=== PATIENT | male | born 1935 | race Caucasian/White ===

== ENCOUNTER 2019-06-27 15:37 | Observation (INO) ==
--- NOTE | 2019-06-27 16:15 | Emergency Department Note ---
Disposition Clinical Impression: Diarrhea Qualifiers: Diarrhea type: unspecified type Qualified Code(s): R19.7 - Diarrhea, unspecified Disposition: Admitted As Inpatient Condition: Fair Instructions: Abdominal Pain (ED) Referrals: Luis Langford DO [Primary Care Provider] - Forms: ED Satisfaction Letter, Work/School Release Time of Disposition: 17:31 Abdominal Pain HPI - General Chief Complaint: ED Abdominal Pain Stated Complaint: Fall/Back Pain/Abd Pain Source: patient, family Mode of arrival: ambulatory Limitations: no limitations Nursing Notes Reviewed: Yes Vital Signs Reviewed: Yes - History of Present Illness HPI Narrative: Mr. Teresa is an 84-year-old male past medical history of having multiple strokes, quadruple bypass, and recent aortic valve replacement on May 31 presented to the ED for diarrhea and abdominal pain after an unwitnessed fall 1 week ago. 1 Week ago, patient had a fall that he states that he tripped over something but does not remember what he hit and how he landed and if he had LOC. His son states that since then he has been drifting to the right when he walks and has been slowing down his walking. About 1 week ago when this happened he has also has right lower quadrant pain and diarrhea at least 10 times per day. Denies blood in his stool. Over the last 3 days, he has noticed increase bilateral lower extremity edema and dizziness but denies SOB or chest pain. Low back pain has been worst since the fall. Back pain in on the right side worsens when he lifts his right leg. Denies dysuria, urinary frequency, nausea, vomiting, fever. Pain Scale: 7 - Related Data Home Medications Medication Instructions Recorded Confirmed Adult Aspirin 325 mg PO DAILY 06/27/19 06/27/19 Ferrous Sulfate [Iron] 325 mg PO TID 06/27/19 06/27/19 Pravastatin Sodium [Pravachol] 40 mg PO DAILY 06/27/19 06/27/19 Allergies Allergy/AdvReac Type Severity Reaction Status Date / Time atorvastatin [From Lipitor] Allergy Muscle Pain Verified 06/27/19 19:57 "anti anxiety medicine" Allergy See Uncoded 09/09/17 13:38 Comments All systems ED: reviewed and negative except as stated. Review of Systems: As Per HPI Abdominal Pain PMH - Past Medical History Medical history: Reports: coronary artery disease, CVA Reports: diverticulosis Psychiatric history: Reports: no psych history - Social History Smoking status: Never smoker Alcohol use: Reports: none Drug use: Reports: none Physical Exam Constitutional: A&O x 3, Alert, in no acute distress, well nourished HEENT: PERRL, Normocephalic, atraumatic, normal contour and symmetric, no masses, lesions or scars Heart: Normal, regular rate and rhythm, no murmurs Lungs: Clear to auscultation, no wheezes, rales, or rhonchi Abdomen: right lower quadrant tenderness, Soft, nondistended,, and no masses palpable, bowel sounds present increased, no guarding or rigidity. 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 Skin: Skin warm and dry, no lesions, no rashes, no jaundice Rectal no blood present, no hemmroids, normal sphincter tone Neurologic: negative rhomberg, normal finger to nose testing, Cranial nerves II through XII intact, no focal deficits, strength within normal limits in all extremities Psych: Cooperative with exam, cognitive function mild judgment good insight good, speech clear, thought process logical, and goal directed Course Course Narrative: Due to patient being a poor historian and a history of a fall that he does not remember if he had LOC with associated diplopia and per son drifting to the right when he walk, will obtain a CT of head without contrast. Due to diarrhea and abdominal pain will obtain CT of abdomen. Will also obtain electrolytes, lipase, hepatic panel, BNP, CBC, and UA to assess for other abnormalities that could be causing the diarrhea or electrolyte abnormalities caused by the shaina rrhea. - Reevaluation(s) Reevaluation #1: Hypokalemia with a potassium of 3.0. Hemoglobin 10.6, previous on 06/21/19 11.6. Rectal exam performed which did not show hemorroids or gross blood. Hemoccult test sent. CT abd, pelvis, and head pending. Time: 17:27 Reevaluation #2: Patient was signed out to Dr. Anna Marie Ruiz to complete management of care. Vital Signs Temperature 99.1 F 06/27/19 15:43 Pulse Rate 100 06/27/19 15:43 Respiratory Rate 18 06/27/19 15:43 Blood Pressure 101/65 06/27/19 15:43 O2 Sat by Pulse Oximetry 94 06/27/19 15:43 Temperature 99.1 F 06/27/19 15:53 Pulse Rate 77 06/27/19 20:38 Respiratory Rate 16 06/27/19 19:58 Blood Pressure 120/86 06/27/19 20:38 O2 Sat by Pulse Oximetry 96 06/27/19 19:58 Oxygen Delivery Oxygen Delivery Room Air Abdominal Pain - MDM Narrative Medical decision making narrative: Patient had inflammation of his colon on CT. He was started on antibiotics emergency department. He will be admitted to the hospitalist for further care and evaluation of his weakness and diarrhea likely secondary to colitis. - Medical Records Medical records reviewed: Yes I reviewed the patient's medical records. - Lab Data Lab results reviewed: Yes I reviewed the patient's lab results. Result diagrams: 06/27/19 16:28 06/27/19 16:28 Lab Results 06/27/19 06/27/19 06/27/19 Range/Units 16:27 16:28 16:28 WBC 10.3 D (4.3-11.1) K/mcL RBC 3.40 L (4.19-5.50) M/mcL Hgb 10.6 L (12.9-16.9) g/dL Hct 31.8 L (37.5-50.1) % MCV 93.5 (83.0-100.0) fL MCH 31.2 (28.0-33.3) pg MCHC 33.3 (31.6-35.5) g/dL RDW 13.1 (11.5-14.5) % Plt Count 194 (140-400) K/mcL MPV 9.9 (9.4-12.4) fL Immature Gran % 0.7 (0-4) % Seg Neutrophils % 76.6 % Lymphocytes % 9.6 % Monocytes % 12.6 % Eosinophils % 0.3 % Basophils % 0.2 % Neutrophils # 7.9 (1.6-8.9) K/mcL Lymphocytes # 1.0 (0.6-4.6) K/mcL Monocytes # 1.3 (0.0-1.3) K/mcL Eosinophils # 0.0 (0.0-0.6) K/mcL Basophils # 0.0 (0.0-0.2) K/mcL Sodium 134 L (136-145) mEq/L Potassium 3.0 L (3.5-5.1) mEq/L Chloride 98 (98-107) mEq/L Carbon Dioxide 29 (23-29) mEq/L BUN 16 (8-23) mg/dL Creatinine 1.19 (0.70-1.30) mg/dL Est GFR ( Amer) > 60 (> 60) Est GFR (Non-Af Amer) 58 L (> 60) BUN/Creatinine Ratio 13 (6-26) Glucose 138 H (70-105) mg/dL Calculated Osmolality 281 (280-300) Lactic Acid 1.6 (0.5-2.2) mmol/L Calcium 8.4 L (8.6-10.3) mg/dL Total Bilirubin 0.7 (0.3-1.0) mg/dL Direct Bilirubin 0.1 (0.0-0.2) mg/dL Indirect Bilirubin 0.6 (0.0-1.2) mg/dL AST 17 (13-39) Units/L ALT 13 (7-52) Units/L Alkaline Phosphatase 66 (34-104) Units/L B-Natriuretic Peptide (Less than 100) pg/mL Serum Total Protein 6.4 (6.4-8.9) g/dL Albumin 3.4 L (3.5-5.7) g/dL Globulin 3.0 (2.4-3.5) g/dL Albumin/Globulin Ratio 1.1 (1.1-2.2) Lipase 20 (11-82) Units/L Urine Color (Yellow) Urine Clarity (Clear) Urine pH (5.0-8.0) pH Units Ur Specific [place] (1.010-1.025) Urine Protein (Neg-Trace) mg/dL Urine Glucose (UA) (Normal) mg/dL Urine Ketones (Negative) mg/dL Urine Blood (Negative) Urine Nitrite (Negative) Urine Bilirubin (Negative) Urine Urobilinogen (Normal) mg/dL Ur Leukocyte Esterase (Negative) Urine Microscopic RBC (0-3) per hpf Urine Microscopic WBC (0-3) per hpf Ur Squamous Epith Cells (None-Few) per lpf Urine Bacteria (None-Few) per hpf Hyaline Casts (None-Few) per lpf Ur Culture Indicated? (NO) Stool Occult Bld Scrn (Negative) 06/27/19 06/27/19 06/27/19 Range/Units 16:28 17:00 19:13 WBC (4.3-11.1) K/mcL RBC (4.19-5.50) M/mcL Hgb (12.9-16.9) g/dL Hct (37.5-50.1) % MCV (83.0-100.0) fL MCH (28.0-33.3) pg MCHC (31.6-35.5) g/dL RDW (11.5-14.5) % Plt Count (140-400) K/mcL MPV (9.4-12.4) fL Immature Gran % (0-4) % Seg Neutrophils % % Lymphocytes % % Monocytes % % Eosinophils % % Basophils % % Neutrophils # (1.6-8.9) K/mcL Lymphocytes # (0.6-4.6) K/mcL Monocytes # (0.0-1.3) K/mcL Eosinophils # (0.0-0.6) K/mcL Basophils # (0.0-0.2) K/mcL Sodium (136-145) mEq/L Potassium (3.5-5.1) mEq/L Chloride (98-107) mEq/L Carbon Dioxide (23-29) mEq/L BUN (8-23) mg/dL Creatinine (0.70-1.30) mg/dL Est GFR ( Amer) (> 60) Est GFR (Non-Af Amer) (> 60) BUN/Creatinine Ratio (6-26) Glucose (70-105) mg/dL Calculated Osmolality (280-300) Lactic Acid (0.5-2.2) mmol/L Calcium (8.6-10.3) mg/dL Total Bilirubin (0.3-1.0) mg/dL Direct Bilirubin (0.0-0.2) mg/dL Indirect Bilirubin (0.0-1.2) mg/dL AST (13-39) Units/L ALT (7-52) Units/L Alkaline Phosphatase (34-104) Units/L B-Natriuretic Peptide 157 H (Less than 100) pg/mL Serum Total Protein (6.4-8.9) g/dL Albumin (3.5-5.7) g/dL Globulin (2.4-3.5) g/dL Albumin/Globulin Ratio (1.1-2.2) Lipase (11-82) Units/L Urine Color Yellow (Yellow) Urine Clarity Clear (Clear) Urine pH 6.0 (5.0-8.0) pH Units Ur Specific [place] 1.024 (1.010-1.025) Urine Protein 30 H (Neg-Trace) mg/dL Urine Glucose (UA) Normal (Normal) mg/dL Urine Ketones Negative (Negative) mg/dL Urine Blood Negative (Negative) Urine Nitrite Negative (Negative) Urine Bilirubin Small H (Negative) Urine Urobilinogen Normal (Normal) mg/dL Ur Leukocyte Esterase Negative (Negative) Urine Microscopic RBC 0-3 (0-3) per hpf Urine Microscopic WBC 5-15 H (0-3) per hpf Ur Squamous Epith Cells Many H (None-Few) per lpf Urine Bacteria None Seen (None-Few) per hpf Hyaline Casts None Seen (None-Few) per lpf Ur Culture Indicated? YES A (NO) Stool Occult Bld Scrn Negative (Negative) - Radiology Data Radiology results reviewed: Yes I reviewed the patient's radiology results. - EKG Data EKG attestation: Yes I reviewed and interpreted this EKG. EKG shows normal: sinus rhythm Rate: normal Rhythm: NSR [place]/QRS: normal When compared to previous EKG there are: no significant changes Interpretation: no acute changes Attestation Statement - Attestation Attestation: I, Alex Martinez, examined this patient and my medical decision-making was reviewed with the SUPERINTENDENT PIER/PA/Advanced Practice Nurse/Resident Physician. I agree with the documented findings, disposition and treatment plan as described except to the extent set forth below. 84-year-old male presents emergency Department with concerns of a fall one week ago, increasing generalized weakness and multiple episodes of liquid stool a day over the past week. Family states that his condition has progressively declined over the past week. He was not evaluated after fall one week ago. Patient reports he lost his balance however he is a poor historian. Patient denies hematochezia. He has had dark stools however he is also been taking iron tablets. No history of similar symptoms in the past. CT of the abdomen and pelvis shows likely colitis versus proctitis. Patient was started on antibiotics emergency department and will be admitted to the hospitalist for further care and evaluation.
[2019-06-27 16:43] LABS: Basophils % 0.2 %; Eosinophils % 0.3 %; Hematocrit 31.8 % (37.5-50.1); Hemoglobin 10.6 g/dL (12.9-16.9); Immature Granulocytes % 0.7 % (0-4); Lymphocytes % 9.6 %; Mean Corpuscular HGB Conc 33.3 g/dL (31.6-35.5); Mean Corpuscular Hemoglobin 31.2 pg (28.0-33.3); Mean Corpuscular Volume 93.5 fL (83.0-100.0); Mean Platelet Volume 9.9 fL (9.4-12.4); Monocytes # 1.3 K/mcL (0.0-1.3); Monocytes % 12.6 %; Neutrophils # 7.9 K/mcL (1.6-8.9); Platelet Count 194 K/mcL (140-400); Red Cell Distribution Width 13.1 % (11.5-14.5); Segmented Neutrophils % 76.6 %
[2019-06-27 16:45] LABS: White Blood Count 10.3 K/mcL (4.3-11.1)
[2019-06-27 17:01] LABS: Alanine Aminotransferase 13 Units/L (7-52); Albumin 3.4 g/dL (3.5-5.7); Albumin/Globulin Ratio 1.1 (1.1-2.2); Alkaline Phosphatase 66 Units/L (34-104); Aspartate Amino Transferase 17 Units/L (13-39); BUN/Creatinine Ratio 13 (6-26); Bilirubin,Direct 0.1 mg/dL (0.0-0.2); Bilirubin,Indirect 0.6 mg/dL (0.0-1.2); Bilirubin,Total 0.7 mg/dL (0.3-1.0); Blood Urea Nitrogen 16 mg/dL (8-23); Calcium 8.4 mg/dL (8.6-10.3); Carbon Dioxide 29 mEq/L (23-29); Chloride 98 mEq/L (98-107); Glucose 138 mg/dL (70-105); Lipase 20 Units/L (11-82); Osmolality,Calculated 281 (280-300); Sodium 134 mEq/L (136-145); Total Protein 6.4 g/dL (6.4-8.9); eGFR For African Americans > 60 (> 60); eGFR For Non-African Americans 58 (> 60)
[2019-06-27 19:25] LABS: Bilirubin,Urine Small (Negative); Blood,Urine Negative (Negative); Clarity,Urine Clear (Clear); Color,Urine Yellow (Yellow); Glucose,Urine (UA) Normal (Normal); Ketones,Urine Negative (Negative); Leukocyte Esterase,Urine Negative (Negative); Nitrite,Urine Negative (Negative); Protein,Urine 30 mg/dL (Neg-Trace); Specific Gravity,Urine 1.024 (1.010-1.025); Urobilinogen,Urine Normal (Normal)
[2019-06-27 19:27] LABS: Bacteria,Urine None Seen per hpf (None-Few); Hyaline Casts,Urine None Seen per lpf (None-Few); RBC,Urine 0-3 per hpf (0-3); Squamous Epithelial Cell,Urine Many per lpf (None-Few)
[2019-06-27] MEDS ORDERED: 0.9 % Sodium Chloride 1,000 ML IVC ONE (19:27)
[2019-06-27] MEDS ORDERED: MetroNIDAZOLE 500 MG/100 ML 500 MG/100 ML BAG IVPB ONE (19:28)
[2019-06-27] MEDS ORDERED: Naloxone 0.4 MG/ML INJ IVP PRN (23:38)
[2019-06-27] MEDS ORDERED: Ondansetron 4 MG/2 ML VIAL IVP PRN (23:38)
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
[2019-06-28 04:49] LABS: Basophils % 0.3 %; Eosinophils # 0.1 K/mcL (0.0-0.6); Eosinophils % 0.8 %; Hematocrit 31.8 % (37.5-50.1); Hemoglobin 10.5 g/dL (12.9-16.9); Immature Granulocytes % 0.7 % (0-4); Lymphocytes # 0.8 K/mcL (0.6-4.6); Lymphocytes % 8.1 %; Mean Corpuscular Hemoglobin 30.7 pg (28.0-33.3); Mean Platelet Volume 9.9 fL (9.4-12.4); Monocytes # 1.2 K/mcL (0.0-1.3); Monocytes % 12.7 %; Neutrophils # 7.4 K/mcL (1.6-8.9); Platelet Count 180 K/mcL (140-400); Red Blood Count 3.42 M/mcL (4.19-5.50); Segmented Neutrophils % 77.4 %; White Blood Count 9.6 K/mcL (4.3-11.1)
[2019-06-28 04:54] LABS: INR 1.4; Prothrombin Time 16.3 Seconds (9.4-12.1)
[2019-06-28 04:57] LABS: Activated Partial Thrombo Time 31.1 Seconds (26.0-36.0)
[2019-06-28 05:10] LABS: Alanine Aminotransferase 11 Units/L (7-52); Albumin/Globulin Ratio 1.2 (1.1-2.2); Alkaline Phosphatase 56 Units/L (34-104); Aspartate Amino Transferase 15 Units/L (13-39); BUN/Creatinine Ratio 11 (6-26); Bilirubin,Total 0.7 mg/dL (0.3-1.0); Blood Urea Nitrogen 12 mg/dL (8-23); Carbon Dioxide 26 mEq/L (23-29); Chloride 103 mEq/L (98-107); Chol/HDL Ratio 2.8 (0-4.9); Cholesterol 115 mg/dL (< 200); Globulin 2.5 g/dL (2.4-3.5); Glucose 108 mg/dL (70-105); HDL Cholesterol 41 mg/dL (40-59); LDL Cholesterol,Calculated 64 mg/dL (0-99); Magnesium 1.7 mg/dL (1.6-2.6); Osmolality,Calculated 284 (280-300); Phosphorous 2.4 mg/dL (2.7-4.5); Potassium 3.3 mEq/L (3.5-5.1); Sodium 137 mEq/L (136-145); Total Protein 5.5 g/dL (6.4-8.9); Triglycerides 49 mg/dL (< 150); eGFR For African Americans > 60 (> 60); eGFR For Non-African Americans > 60 (> 60)
[2019-06-28] MEDS: 0.9 % Sodium Chloride 1,000 ML IVC SCH ×2 (06:10→20:14)
[2019-06-28] MEDS: MetroNIDAZOLE 500 MG/100 ML 500 MG/100 ML BAG IVPB SCH ×3 (06:11→20:13)
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
--- NOTE | 2019-06-28 09:54 | Internal Med Progress Note ---
<Jose Miguel Dixon F - Last Filed: 06/28/19 14:07> Hospitalist Progress Note - Encounter Date of Encounter: 06/28/19 Time of Encounter: 09:53 - Subjective Interval History: Patient was seen and examined at bedside. No acute events overnight. Patient is complaining of nonspecific abdominal pain, however it was difficult to elicit a history. He has a history of dementia, unsure of what mental baseline is. Today he is alert and oriented to self only. He otherwise denies any chest pain, shortness of breath, palpitations, nausea, vomiting, fevers, chills. - Exam Vitals: Temp Pulse Resp BP Pulse Ox 98.5 F 95 16 122/66 93 06/28/19 07:10 06/28/19 07:10 06/28/19 07:10 06/28/19 07:10 06/28/19 07:10 Exam: GEN: Well-appearing, NAD, conversant. HEAD: Normocephalic, atraumatic. EYES: PERRL, EOMI, anicteric. ENT: MMM. oropharynx without erythema or drainage. NECK: Supple. No LAD. No stiffness or restricted ROM. No tracheal deviation. HEART: Regular rate and regular rhythm, normal S1/S2, no m/r/g. LUNGS: CTAB, good air exchange bilaterally. No wheezing, rubs, or rhonchi. ABDO: Soft, mild diffuse tenderness, nondistended with active bowel sounds. No rebound/guarding/rigidity. : No suprapubic tenderness or CVA tenderness. BACK: No obvious stepoffs or deformities. EXT: Without cyanosis, clubbing or edema. SKIN: Warm and dry without any rash. NEURO: Grossly nonfocal. Alert and oriented to self only, moving all 4 extremities. CN not formally tested but appear grossly intact. PSYCH: Normal affect, no depressed or anxious mood. - Assessment and Plan (1) Colitis Current Visit: Yes Status: Acute Assessment and Plan: Patient presented with abdominal pain with diarrhea. CTAP on 06/27 showed rectosigmoid wall thickening with serosal haziness consistent with colitis/rectal proctitis. In the ED, treated empirically with Cipro/Flagyl. - Cont abx treatment - NPO for now, advance diet as tolerated (2) Hyperlipidemia Current Visit: Yes Status: Acute Assessment and Plan: Patient has a chronic history of hyperlipidemia. Fasting lipid panel was checked which showed elevated cholesterol of 206. We will consider restarting the patient's pravastatin. (3) Mechanical heart valve present Current Visit: Yes Status: Acute Assessment and Plan: History of aortic valve replacement. On aspirin 325 for anticoagulation. Patient has an INR of 1.4. Holding further anticoagulation out of risk of bleeding. (4) Hypokalemia Current Visit: Yes Status: Acute Assessment and Plan: Potassium was 3 on admission and 3.3 this morning. - Repleted orally this morning - Will monitor with BMPs (5) Fall Current Visit: Yes Status: Acute Assessment and Plan: Patient endorsed a unwitnessed fall upon arrival to the emergency department. CT head shows acute intracranial abnormality only cerebral atrophy and remote lacunar infarct. No acute abnormalities or fractures on chest or pelvic x-ray - On falls precautions - On ASA 325, no other AC DVT Prophylaxis: DVT ppx: SCDs Activity: As tolerated Fluids: Normal saline at 125 ML/HR Electrolytes: Replete as necessary Nutrition: Cardiac diet GI ppx: None Lines: 1x PIV Consults: None Code: Full code Dispo: Pending further antibiotic treatment - Time Spent with Patient Total time spent is greater than 50% in coordination of care (as documented) at patient's floor/unit and/or counseling patient: less than 15 minutes Plan of Care Discussed with: patient Internal Medicine: Result - Labs CBC & Chem 7: 06/28/19 04:02 06/28/19 04:02 Labs: Short CBC 06/27/19 06/28/19 Range/Units 16:28 04:02 WBC 10.3 D 9.6 (4.3-11.1) K/mcL Hgb 10.6 L 10.5 L (12.9-16.9) g/dL Hct 31.8 L 31.8 L (37.5-50.1) % Plt Count 194 180 (140-400) K/mcL Neutrophils # 7.9 7.4 (1.6-8.9) K/mcL BMP 06/27/19 06/28/19 16:28 04:02 Sodium 134 L 137 Potassium 3.0 L 3.3 L Chloride 98 103 Carbon Dioxide 29 26 BUN 16 12 Creatinine 1.19 1.08 Glucose 138 H 108 H Calcium 8.4 L 8.0 L Liver Function 06/27/19 06/28/19 Range/Units 16:28 04:02 Total Bilirubin 0.7 0.7 (0.3-1.0) mg/dL Direct Bilirubin 0.1 (0.0-0.2) mg/dL AST 17 15 (13-39) Units/L ALT 13 11 (7-52) Units/L Alkaline Phosphatase 66 56 (34-104) Units/L Albumin 3.4 L 3.0 L (3.5-5.7) g/dL Urine 06/27/19 Range/Units 19:13 Urine Color Yellow (Yellow) Urine Clarity Clear (Clear) Urine pH 6.0 (5.0-8.0) pH Units Ur Specific [place] 1.024 (1.010-1.025) Urine Protein 30 H (Neg-Trace) mg/dL Urine Glucose (UA) Normal (Normal) mg/dL - ABG Interpretation ABG results: PT/INR, D-dimer PT 16.3 Seconds (9.4-12.1) H 06/28/19 04:02 - Impressions Impressions Abdomen/Pelvis CT 06/27/19 16:10 IMPRESSION: 1. Rectosigmoid wall thickening with serosal haziness consistent with colitis/rectoproctitis. 2. Status post low left colonic resection without evidence of obstruction or significant asymmetry at the surgical site. 3. Scattered mild prominence of small bowel loops and colon favoring ileus. 4. No appendicitis, gallstones, or urinary obstruction. 5. Atherosclerotic disease and other findings as above. D/ / 06/27/2019 19:33:24 Omaira Beck MD / Dipika Gómez Interpreting Provider: Omaira Beck MD Head CT 06/27/19 16:12 IMPRESSION: No acute intracranial abnormality. Cerebral atrophy. Chronic small vessel ischemic change. 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 D/ / 06/27/2019 19:14:41 Donna Turner MD / Dipika Gómez Interpreting Provider: Donna Turner MD Chest X-Ray 06/27/19 16:48 IMPRESSION: Chest radiograph: No acute abnormality detected. Pelvis radiograph: No acute abnormality identified. D/ / Ilya Smith MD / Ilya Smith MD Interpreting Provider: Ilya Smith MD Pelvis X-Ray 06/27/19 16:48 IMPRESSION: Chest radiograph: No acute abnormality detected. Pelvis radiograph: No acute abnormality identified. D/ / Ilya Smith MD / Ilya Smith MD Interpreting Provider: Ilya Smith MD Consult Discharge Plan - Plan Referrals: Luis Langford DO [Primary Care Provider] - <Jonnie Borges - Last Filed: 06/28/19 14:48> Hospitalist Progress Note - Encounter Date of Encounter: 06/28/19 - Exam Vitals: Temp Pulse Resp BP Pulse Ox 98.5 F 71 16 115/63 95 06/28/19 11:22 06/28/19 11:22 06/28/19 11:22 06/28/19 11:22 06/28/19 11:22 - Assessment and Plan (1) Colitis Current Visit: Yes Status: Acute (2) Hyperlipidemia Current Visit: Yes Status: Acute (3) Mechanical heart valve present Current Visit: Yes Status: Acute (4) Hypokalemia Current Visit: Yes Status: Acute - Time Spent with Patient Total time spent is greater than 50% in coordination of care (as documented) at patient's floor/unit and/or counseling patient: Internal Medicine: Result - Labs CBC & Chem 7: 06/28/19 04:02 06/28/19 04:02 Labs: Short CBC 06/27/19 06/28/19 Range/Units 16:28 04:02 WBC 10.3 D 9.6 (4.3-11.1) K/mcL Hgb 10.6 L 10.5 L (12.9-16.9) g/dL Hct 31.8 L 31.8 L (37.5-50.1) % Plt Count 194 180 (140-400) K/mcL Neutrophils # 7.9 7.4 (1.6-8.9) K/mcL BMP 06/27/19 06/28/19 16:28 04:02 Sodium 134 L 137 Potassium 3.0 L 3.3 L Chloride 98 103 Carbon Dioxide 29 26 BUN 16 12 Creatinine 1.19 1.08 Glucose 138 H 108 H Calcium 8.4 L 8.0 L Liver Function 06/27/19 06/28/19 Range/Units 16:28 04:02 Total Bilirubin 0.7 0.7 (0.3-1.0) mg/dL Direct Bilirubin 0.1 (0.0-0.2) mg/dL AST 17 15 (13-39) Units/L ALT 13 11 (7-52) Units/L Alkaline Phosphatase 66 56 (34-104) Units/L Albumin 3.4 L 3.0 L (3.5-5.7) g/dL Urine 06/27/19 Range/Units 19:13 Urine Color Yellow (Yellow) Urine Clarity Clear (Clear) Urine pH 6.0 (5.0-8.0) pH Units Ur Specific [place] 1.024 (1.010-1.025) Urine Protein 30 H (Neg-Trace) mg/dL Urine Glucose (UA) Normal (Normal) mg/dL - ABG Interpretation ABG results: PT/INR, D-dimer PT 16.3 Seconds (9.4-12.1) H 06/28/19 04:02 - Impressions Impressions Abdomen/Pelvis CT 06/27/19 16:10 IMPRESSION: 1. Rectosigmoid wall thickening with serosal haziness consistent with colitis/rectoproctitis. 2. Status post low left colonic resection without evidence of obstruction or significant asymmetry at the surgical site. 3. Scattered mild prominence of small bowel loops and colon favoring ileus. 4. No appendicitis, gallstones, or urinary obstruction. 5. Atherosclerotic disease and other findings as above. D/ / 06/27/2019 19:33:24 Omaira Beck MD / Dipika Gómez Interpreting Provider: Omaira Beck MD Head CT 06/27/19 16:12 IMPRESSION: No acute intracranial abnormality. Cerebral atrophy. Chronic small vessel ischemic change. 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 D/ / 06/27/2019 19:14:41 Donna Turner MD / Dipika Gómez Interpreting Provider: Donna Turner MD Chest X-Ray 06/27/19 16:48 IMPRESSION: Chest radiograph: No acute abnormality detected. Pelvis radiograph: No acute abnormality identified. D/ / Ilya Smith MD / Ilya Smith MD Interpreting Provider: Ilya Smith MD Pelvis X-Ray 06/27/19 16:48 IMPRESSION: Chest radiograph: No acute abnormality detected. Pelvis radiograph: No acute abnormality identified. D/ / Ilya Smith MD / Ilya Smith MD Interpreting Provider: Ilya Smith MD - Attending Attestation I examined this patient and my medical decision-making was reviewed with the Resident Physician. I agree with the documented findings, disposition and treatment plan as described except to the extent set forth below. 84 year old male with history of CAD, CVA, CABG, AVR one month ago presented with colitis/proctisi and fall. He was started on Cipro/Flagyl. Currently states pain is present but not as bad. Daughter at bedside, states patient behavior is not typical since he had multiple strokes. Patient is observed to be slightly confused but will answer questions when asked. He denies fevers. Abdomen is soft, bowel sounds normal. CT reviewed, VS: reviewed, Labs: reviewed. INR 1.4 but patient is not on any anticoagulation. Clinical records reviewed, he is not on anticoagulation because he is high fall risk, so is on aspirin. Continue Cipro/Flagyl and advance diet as tolerated. Will likely benefit from PT/OT evaluation when pain improves. <ZackJose Miguel F - Last Filed: 06/28/19 14:07> (2) Hyperlipidemia Qualifiers: Qualified Code(s): E78.5 - Hyperlipidemia, unspecified <Jonnie Borges - Last Filed: 06/28/19 14:48> (2) Hyperlipidemia Qualifiers: Qualified Code(s): E78.5 - Hyperlipidemia, unspecified
[2019-06-28] MEDS: Acetaminophen 325 MG TABLET PO PRN (10:41)
[2019-06-28] MEDS ORDERED: Calcium Gluconate 2,000 MG in 0.9 % Sodium Chloride 100 ML IVPB ONE (15:36)
[2019-06-29] MEDS ORDERED: *HR* Promethazine 25 MG/ML VIAL IVP PRN (00:39)
[2019-06-29] MEDS ORDERED: Haloperidol Lactate 5 MG/ML VIAL IVP ONE (00:39)
[2019-06-29] MEDS: MetroNIDAZOLE 500 MG/100 ML 500 MG/100 ML BAG IVPB SCH ×2 (04:15→12:05)
[2019-06-29 05:12] LABS: Basophils % 0.2 %; Eosinophils # 0.2 K/mcL (0.0-0.6); Eosinophils % 1.4 %; Hematocrit 32.3 % (37.5-50.1); Hemoglobin 10.6 g/dL (12.9-16.9); Immature Granulocytes % 0.6 % (0-4); Lymphocytes % 7.9 %; Mean Corpuscular HGB Conc 32.8 g/dL (31.6-35.5); Mean Corpuscular Hemoglobin 31.4 pg (28.0-33.3); Mean Corpuscular Volume 95.6 fL (83.0-100.0); Mean Platelet Volume 9.6 fL (9.4-12.4); Monocytes # 1.1 K/mcL (0.0-1.3); Monocytes % 8.8 %; Neutrophils # 9.8 K/mcL (1.6-8.9); Platelet Count 171 K/mcL (140-400); Red Blood Count 3.38 M/mcL (4.19-5.50); Red Cell Distribution Width 12.9 % (11.5-14.5); Segmented Neutrophils % 81.1 %; White Blood Count 12.1 K/mcL (4.3-11.1)
[2019-06-29 05:19] LABS: INR 1.7; Prothrombin Time 19.1 Seconds (9.4-12.1)
[2019-06-29 05:26] LABS: Alanine Aminotransferase 14 Units/L (7-52); Albumin 2.9 g/dL (3.5-5.7); Albumin/Globulin Ratio 1.1 (1.1-2.2); Alkaline Phosphatase 57 Units/L (34-104); Aspartate Amino Transferase 19 Units/L (13-39); BUN/Creatinine Ratio 10 (6-26); Bilirubin,Total 0.6 mg/dL (0.3-1.0); Blood Urea Nitrogen 10 mg/dL (8-23); Calcium 7.7 mg/dL (8.6-10.3); Carbon Dioxide 23 mEq/L (23-29); Chloride 108 mEq/L (98-107); Globulin 2.7 g/dL (2.4-3.5); Glucose 106 mg/dL (70-105); Osmolality,Calculated 287 (280-300); Phosphorous 2.2 mg/dL (2.7-4.5); Potassium 3.4 mEq/L (3.5-5.1); Sodium 139 mEq/L (136-145); Total Protein 5.6 g/dL (6.4-8.9); eGFR For African Americans > 60 (> 60); eGFR For Non-African Americans > 60 (> 60)
[2019-06-29] MEDS: 0.9 % Sodium Chloride 1,000 ML IVC SCH ×3 (05:51→20:58)
--- NOTE | 2019-06-29 07:24 | Internal Med Progress Note ---
<Jose Miguel Dixon F - Last Filed: 06/29/19 13:12> Hospitalist Progress Note - Encounter Date of Encounter: 06/29/19 Time of Encounter: 07:23 - Subjective Interval History: Patient was seen and examined at bedside. Overnight, patient was more confused/agitated and reportedly is is connected himself from the monitor and removed his IV. Got haldol/benadryl. This morning he is resting comfortably and is only complaining of pain in his elbows. He is alert and oriented to self and place. He otherwise denies any chest pain, dyspnea, abdominal pain, nausea, vomiting, fevers, chills. - Exam Vitals: Temp Pulse Resp BP Pulse Ox 98.1 F 83 15 134/66 93 06/29/19 06:37 06/29/19 06:37 06/29/19 06:37 06/29/19 06:37 06/29/19 06:37 Exam: GEN: Well-appearing, NAD, conversant. HEAD: Normocephalic, atraumatic. EYES: PERRL, EOMI, anicteric. ENT: MMM. oropharynx without erythema or drainage. NECK: Supple. No LAD. No stiffness or restricted ROM. No tracheal deviation. HEART: Regular rate and regular rhythm, normal S1/S2, no m/r/g. LUNGS: CTAB, good air exchange bilaterally. No wheezing, rubs, or rhonchi. ABDO: Soft, mild diffuse tenderness, nondistended with active bowel sounds. No rebound/guarding/rigidity. : No suprapubic tenderness or CVA tenderness. BACK: No obvious stepoffs or deformities. EXT: Without cyanosis, clubbing or edema. SKIN: Warm and dry without any rash. NEURO: Grossly nonfocal. Alert and oriented to self only, moving all 4 extremities. CN not formally tested but appear grossly intact. PSYCH: Normal affect, no depressed or anxious mood. - Assessment and Plan (1) Colitis Current Visit: Yes Status: Acute Assessment and Plan: Patient presented with abdominal pain with diarrhea. CTAP on 06/27 showed rectosigmoid wall thickening with serosal haziness consistent with colitis/rectal proctitis. In the ED, treated empirically with Cipro/Flagyl. - Cont abx treatment - WBC uptrending to 12.1 today - Tolerating PO, on cardiac diet - Advance diet as tolerated - Since WBC uptrending, will check CXR for possible pneumonia (2) Hyperlipidemia Current Visit: Yes Status: Acute Assessment and Plan: Patient has a chronic history of hyperlipidemia. - Fasting lipid panel was checked, cholesterol 115 - Consider restart pravastatin (3) Mechanical heart valve present Current Visit: Yes Status: Acute Assessment and Plan: History of aortic valve replacement. On aspirin 325 at home for anticoagulation. Patient has an INR of 1.4, up to 1.7 today Holding further anticoagulation out of risk of bleeding. (4) Hypokalemia Current Visit: Yes Status: Acute Assessment and Plan: Potassium was 3 on admission and 3.4 this morning. - Repleted orally this morning - Will monitor with BMPs (5) Fall Current Visit: Yes Status: Acute Assessment and Plan: Patient endorsed a unwitnessed fall upon arrival to the emergency department. CT head shows acute intracranial abnormality only cerebral atrophy and remote lacunar infarct. No acute abnormalities or fractures on chest or pelvic x-ray - On falls precautions - PT/OT consults - On ASA 325, no other AC (6) Altered mental status Current Visit: Yes Status: Acute Assessment and Plan: - Pt was more agitated and confused on evening of 06/29 - Likely delirium in setting of hospital stay and infection - Was given haldol/benadryl/phenergan - Family states that patient is typically AAOx3, AAOx2 to self/place today - This morning mentating normally - Recommend reorientation with social interaction, open windows - Consider sitter if confusion worsens DVT Prophylaxis: DVT ppx: SCDs Activity: As tolerated Fluids: Normal saline at 125 ML/HR Electrolytes: Replete as necessary Nutrition: Cardiac diet GI ppx: None Lines: 1x PIV Consults: None Code: Full code Dispo: Pending further antibiotic treatment - Time Spent with Patient Total time spent is greater than 50% in coordination of care (as documented) at patient's floor/unit and/or counseling patient: less than 15 minutes Plan of Care Discussed with: patient Internal Medicine: Result - Labs CBC & Chem 7: 06/29/19 04:50 06/29/19 04:50 Labs: Short CBC 06/29/19 Range/Units 04:50 WBC 12.1 H (4.3-11.1) K/mcL Hgb 10.6 L (12.9-16.9) g/dL Hct 32.3 L (37.5-50.1) % Plt Count 171 (140-400) K/mcL Neutrophils # 9.8 H (1.6-8.9) K/mcL BMP 06/29/19 04:50 Sodium 139 Potassium 3.4 L Chloride 108 H Carbon Dioxide 23 BUN 10 Creatinine 1.00 Glucose 106 H Calcium 7.7 L Liver Function 06/29/19 Range/Units 04:50 Total Bilirubin 0.6 (0.3-1.0) mg/dL AST 19 (13-39) Units/L ALT 14 (7-52) Units/L Alkaline Phosphatase 57 (34-104) Units/L Albumin 2.9 L (3.5-5.7) g/dL - ABG Interpretation ABG results: PT/INR, D-dimer PT 19.1 Seconds (9.4-12.1) H 06/29/19 04:50 - Impressions Impressions Abdomen/Pelvis CT 06/27/19 16:10 IMPRESSION: 1. Rectosigmoid wall thickening with serosal haziness consistent with colitis/rectoproctitis. 2. Status post low left colonic resection without evidence of obstruction or significant asymmetry at the surgical site. 3. Scattered mild prominence of small bowel loops and colon favoring ileus. 4. No appendicitis, gallstones, or urinary obstruction. 5. Atherosclerotic disease and other findings as above. D/ / 06/27/2019 19:33:24 Omaira Beck MD / Dipika Gómez Interpreting Provider: Omaira Beck MD Head CT 06/27/19 16:12 IMPRESSION: No acute intracranial abnormality. Cerebral atrophy. Chronic small vessel ischemic change. 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 D/ / 06/27/2019 19:14:41 Donna Turner MD / Dipika Gómez Interpreting Provider: Donna Turner MD Consult Discharge Plan - Plan Referrals: Luis Langford DO [Primary Care Provider] - <Jonnie Borges - Last Filed: 06/29/19 13:59> Hospitalist Progress Note - Encounter Date of Encounter: 06/29/19 - Exam Vitals: Temp Pulse Resp BP Pulse Ox 98.4 F 71 15 103/67 94 06/29/19 10:18 06/29/19 10:18 06/29/19 10:18 06/29/19 10:18 06/29/19 10:18 - Assessment and Plan (1) Colitis Current Visit: Yes Status: Acute (2) Hyperlipidemia Current Visit: Yes Status: Acute (3) Mechanical heart valve present Current Visit: Yes Status: Acute (4) Hypokalemia Current Visit: Yes Status: Acute - Time Spent with Patient Total time spent is greater than 50% in coordination of care (as documented) at patient's floor/unit and/or counseling patient: Internal Medicine: Result - Labs CBC & Chem 7: 06/29/19 04:50 06/29/19 04:50 Labs: Short CBC 06/29/19 Range/Units 04:50 WBC 12.1 H (4.3-11.1) K/mcL Hgb 10.6 L (12.9-16.9) g/dL Hct 32.3 L (37.5-50.1) % Plt Count 171 (140-400) K/mcL Neutrophils # 9.8 H (1.6-8.9) K/mcL BMP 06/29/19 04:50 Sodium 139 Potassium 3.4 L Chloride 108 H Carbon Dioxide 23 BUN 10 Creatinine 1.00 Glucose 106 H Calcium 7.7 L Liver Function 06/29/19 Range/Units 04:50 Total Bilirubin 0.6 (0.3-1.0) mg/dL AST 19 (13-39) Units/L ALT 14 (7-52) Units/L Alkaline Phosphatase 57 (34-104) Units/L Albumin 2.9 L (3.5-5.7) g/dL - ABG Interpretation ABG results: PT/INR, D-dimer PT 19.1 Seconds (9.4-12.1) H 06/29/19 04:50 - Impressions Impressions Abdomen/Pelvis CT 06/27/19 16:10 IMPRESSION: 1. Rectosigmoid wall thickening with serosal haziness consistent with colitis/rectoproctitis. 2. Status post low left colonic resection without evidence of obstruction or significant asymmetry at the surgical site. 3. Scattered mild prominence of small bowel loops and colon favoring ileus. 4. No appendicitis, gallstones, or urinary obstruction. 5. Atherosclerotic disease and other findings as above. D/ / 06/27/2019 19:33:24 Omaira Beck MD / Dipika Gómez Interpreting Provider: Omaira Beck MD Chest X-Ray 06/29/19 11:34 IMPRESSION: Minimal bibasilar atelectasis. D/ / Iván Vega MD / vIán Vega MD Interpreting Provider: Iván Vega MD - Attending Attestation I examined this patient and my medical decision-making was reviewed with the Resident Physician. I agree with the documented findings, disposition and treatment plan as described except to the extent set forth below. Overnight patient had episode of confusion. Received IV Haldol and Benadryl. Currently this morning patient was appearing tearful and confused. He does appear to have a dementia at baseline after talking with his son. VS: reviewed, Labs; reviewed. Colitis: continue Cipro/Flagyl. Monitor WBC count as it is fluctuating in last few days. Afebrile. Check chest x-ray chest monitor for pneumonia. Will avoid Haldol, Benadryl as much as possible due to patient age. Continue reorientation. <Jose Miguel Dixon F - Last Filed: 06/29/19 13:12> (2) Hyperlipidemia Qualifiers: Qualified Code(s): E78.5 - Hyperlipidemia, unspecified (6) Altered mental status Qualifiers: Altered mental status type: delirium Qualified Code(s): R41.0 - Disorientation, unspecified <Jonnie Borges - Last Filed: 06/29/19 13:59> (2) Hyperlipidemia Qualifiers: Qualified Code(s): E78.5 - Hyperlipidemia, unspecified
[2019-06-29] MEDS ORDERED: Potassium Chloride Elixir 20 MEQ/15 ML UDC PO ONE (07:29)
[2019-06-29] MEDS: Acetaminophen 325 MG TABLET PO PRN (07:52)
[2019-06-29] MEDS ORDERED: Ondansetron ODT 4 MG TAB.RAPDIS SL PRN (11:33)
--- NOTE | 2019-06-29 15:14 | Electrocardiograph Report ---
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
[2019-06-29] MEDS ORDERED: Isovue-370 500 ML BOTTLE IVP ONE (17:36)
[2019-06-29 17:40] LABS: Basophils % 0.3 %; Eosinophils # 0.3 K/mcL (0.0-0.6); Eosinophils % 3.2 %; Hematocrit 29.5 % (37.5-50.1); Hemoglobin 9.8 g/dL (12.9-16.9); Immature Granulocytes % 0.7 % (0-4); Lymphocytes # 0.9 K/mcL (0.6-4.6); Lymphocytes % 9.6 %; Mean Corpuscular HGB Conc 33.2 g/dL (31.6-35.5); Mean Corpuscular Hemoglobin 31.4 pg (28.0-33.3); Mean Corpuscular Volume 94.6 fL (83.0-100.0); Mean Platelet Volume 9.7 fL (9.4-12.4); Monocytes # 0.9 K/mcL (0.0-1.3); Neutrophils # 7.5 K/mcL (1.6-8.9); Platelet Count 167 K/mcL (140-400); Red Blood Count 3.12 M/mcL (4.19-5.50); Red Cell Distribution Width 13.2 % (11.5-14.5); Segmented Neutrophils % 77.2 %; White Blood Count 9.7 K/mcL (4.3-11.1)
[2019-06-29 17:43] LABS: VBG HCO3 20 mEq/L (21-27); VBG PCO2 32 mmHg (41-51); VBG PH 7.41 pH Units (7.32-7.42); VBG PO2 114 mmHg (25-50)
[2019-06-29 17:53] LABS: Bilirubin,Urine Negative (Negative); Blood,Urine Negative (Negative); Clarity,Urine Clear (Clear); Color,Urine Yellow (Yellow); Glucose,Urine (UA) Normal (Normal); Ketones,Urine Trace mg/dL (Negative); Leukocyte Esterase,Urine Trace (Negative); Nitrite,Urine Negative (Negative); PH,Urine 5.5 pH Units (5.0-8.0); Protein,Urine Trace mg/dL (Neg-Trace); Specific Gravity,Urine 1.015 (1.010-1.025); Urobilinogen,Urine Normal (Normal)
[2019-06-29 17:55] LABS: Bacteria,Urine None Seen per hpf (None-Few); Hyaline Casts,Urine Few per lpf (None-Few); RBC,Urine 0-3 per hpf (0-3); Squamous Epithelial Cell,Urine Many per lpf (None-Few)
[2019-06-29] MEDS ORDERED: Piperacillin/Tazobactam 3.375 GM in Water for inj. (sterile) 20 ML IVP ONE (17:57)
[2019-06-29 17:59] LABS: Alanine Aminotransferase 14 Units/L (7-52); Albumin 2.6 g/dL (3.5-5.7); Alkaline Phosphatase 53 Units/L (34-104); Aspartate Amino Transferase 18 Units/L (13-39); BUN/Creatinine Ratio 10 (6-26); Bilirubin,Total 0.4 mg/dL (0.3-1.0); Blood Urea Nitrogen 9 mg/dL (8-23); C-Reactive Protein 143 mg/L (Less than 10); Calcium 7.5 mg/dL (8.6-10.3); Carbon Dioxide 22 mEq/L (23-29); Chloride 110 mEq/L (98-107); Globulin 2.6 g/dL (2.4-3.5); Glucose 97 mg/dL (70-105); Osmolality,Calculated 285 (280-300); Potassium 3.6 mEq/L (3.5-5.1); Sodium 138 mEq/L (136-145); Total Protein 5.2 g/dL (6.4-8.9); eGFR For African Americans > 60 (> 60); eGFR For Non-African Americans > 60 (> 60)
[2019-06-29] MEDS: Piperacillin/Tazobactam 3.375 GM in 0.9 % Sodium Chloride Mini Bag 100 ML IVPB SCH (20:53)
[2019-06-29] MEDS ORDERED: Melatonin 3 MG TABLET PO PRN (23:26)
[2019-06-30] MEDS: Piperacillin/Tazobactam 3.375 GM in 0.9 % Sodium Chloride Mini Bag 100 ML IVPB SCH ×3 (04:04→20:43)
[2019-06-30 04:33] LABS: Hematocrit 30.2 % (37.5-50.1); Hemoglobin 10.2 g/dL (12.9-16.9); Mean Corpuscular HGB Conc 33.8 g/dL (31.6-35.5); Mean Corpuscular Hemoglobin 31.7 pg (28.0-33.3); Mean Corpuscular Volume 93.8 fL (83.0-100.0); Mean Platelet Volume 9.9 fL (9.4-12.4); Platelet Count 200 K/mcL (140-400); Red Blood Count 3.22 M/mcL (4.19-5.50); Red Cell Distribution Width 13.1 % (11.5-14.5)
[2019-06-30 04:43] LABS: INR 1.5; Prothrombin Time 17.3 Seconds (9.4-12.1)
[2019-06-30 04:51] LABS: VBG Ionized Calcium 1.09 mmol/L (1.15-1.35)
[2019-06-30 04:52] LABS: Alanine Aminotransferase 13 Units/L (7-52); Albumin 2.6 g/dL (3.5-5.7); Alkaline Phosphatase 53 Units/L (34-104); Aspartate Amino Transferase 18 Units/L (13-39); BUN/Creatinine Ratio 9 (6-26); Bilirubin,Total 0.4 mg/dL (0.3-1.0); Blood Urea Nitrogen 9 mg/dL (8-23); Calcium 7.6 mg/dL (8.6-10.3); Carbon Dioxide 24 mEq/L (23-29); Chloride 109 mEq/L (98-107); Globulin 2.5 g/dL (2.4-3.5); Glucose 103 mg/dL (70-105); Osmolality,Calculated 287 (280-300); Phosphorous 2.4 mg/dL (2.7-4.5); Potassium 3.9 mEq/L (3.5-5.1); Sodium 139 mEq/L (136-145); Total Protein 5.1 g/dL (6.4-8.9); eGFR For African Americans > 60 (> 60); eGFR For Non-African Americans > 60 (> 60)
--- NOTE | 2019-06-30 08:49 | Internal Med Progress Note ---
<Jose Miguel Dixon F - Last Filed: 06/30/19 14:26> Hospitalist Progress Note - Encounter Date of Encounter: 06/30/19 Time of Encounter: 08:49 - Subjective Interval History: Patient was seen and examined at bedside. No acute events overnight. However the patient was more somnolent and drowsy the previous afternoon. Labs, urinalysis, CT of the head and abdomen pelvis were ordered. This morning, patient is more alert and oriented to self and place. He denies any complaints of pain or discomfort. Denies any nausea, vomiting, fevers, chills. No chest pain, abdominal pain, shortness of breath. - Exam Vitals: Temp Pulse Resp BP Pulse Ox 98.1 F 70 28 160/79 92 06/30/19 07:54 06/30/19 07:54 06/30/19 07:54 06/30/19 07:54 06/30/19 07:54 Exam: GEN: Well-appearing, NAD, conversant. HEAD: Normocephalic, atraumatic. EYES: PERRL, EOMI, anicteric. ENT: MMM. oropharynx without erythema or drainage. NECK: Supple. No LAD. No stiffness or restricted ROM. No tracheal deviation. HEART: Regular rate and regular rhythm, normal S1/S2, no m/r/g. LUNGS: CTAB, good air exchange bilaterally. No wheezing, rubs, or rhonchi. ABDO: Soft, mild diffuse tenderness, nondistended with active bowel sounds. No rebound/guarding/rigidity. : No suprapubic tenderness or CVA tenderness. BACK: No obvious stepoffs or deformities. EXT: Without cyanosis, clubbing or edema. SKIN: Warm and dry without any rash. NEURO: Grossly nonfocal. Alert and oriented to self only, moving all 4 extremities. CN not formally tested but appear grossly intact. PSYCH: Normal affect, no depressed or anxious mood. - Assessment and Plan (1) Colitis Current Visit: Yes Status: Acute Assessment and Plan: Patient presented with abdominal pain with diarrhea. CTAP on 06/27 showed rectosigmoid wall thickening with serosal haziness consiste nt with colitis/rectal proctitis. In the ED, treated empirically with Cipro/Flagyl. - Abx changed to zosyn on 06/30 to cover for pneumonia - WBC 12.1, downtrening to 10 today - Tolerating PO, on cardiac diet - Advance diet as tolerated (2) Pneumonia Current Visit: Yes Status: Acute Assessment and Plan: Patient likely developed a pneumonia resulting in increased somnolence. CXR showed some atelectasis with CTAP noting increased b/l pleural effusions and airspace opacification in the lower lobes. Plan: - Patient's abx was changed from cipro/flagyl to zosyn - MRSA swab was neg - Will continue to monitor and trend CBC/CRP (3) Hyperlipidemia Current Visit: Yes Status: Chronic Assessment and Plan: Patient has a chronic history of hyperlipidemia. - Fasting lipid panel was checked, cholesterol 115 - Restart pravastatin (4) Mechanical heart valve present Current Visit: Yes Status: Acute Assessment and Plan: History of aortic valve replacement. On aspirin 325 at home for anticoagulation. Patient intial INR of 1.4, stable at 1.5 today. Holding further anticoagulation out of risk of bleeding. (5) Hypokalemia Current Visit: Yes Status: Acute Assessment and Plan: Potassium was 3 on admission and 3.9 this morning. - Repleted orally this morning - Will monitor with BMPs (6) Fall Current Visit: Yes Status: Acute Assessment and Plan: Patient endorsed a unwitnessed fall upon arrival to the emergency department. CT head shows acute intracranial abnormality only cerebral atrophy and remote lacunar infarct. No acute abnormalities or fractures on chest or pelvic x-ray. - On falls precautions - PT/OT consults - On ASA 325, no other AC (7) Altered mental status Current Visit: Yes Status: Acute Assessment and Plan: - Pt was more agitated and confused on evening of 06/29 - Likely delirium in setting of hospital stay vs. infection (possible PNA) - Was given haldol/benadryl/phenergan - Family states that patient is typically AAOx3, AAOx2 to self/place today - This morning mentating normally - Recommend reorientation with social interaction, open windows - Consider sitter if confusion worsens DVT Prophylaxis: DVT ppx: SCDs Activity: As tolerated Fluids: Normal saline at 125 ML/HR Electrolytes: Replete as necessary Nutrition: Cardiac diet GI ppx: None Lines: 1x PIV Consults: None Code: Full code Dispo: Pending further antibiotic treatment - Time Spent with Patient Total time spent is greater than 50% in coordination of care (as documented) at patient's floor/unit and/or counseling patient: less than 15 minutes Plan of Care Discussed with: patient Internal Medicine: Result - Labs CBC & Chem 7: 06/30/19 04:20 06/30/19 04:20 Labs: Short CBC 06/29/19 06/30/19 Range/Units 17:23 04:20 WBC 9.7 10.0 (4.3-11.1) K/mcL Hgb 9.8 L 10.2 L (12.9-16.9) g/dL Hct 29.5 L 30.2 L (37.5-50.1) % Plt Count 167 200 (140-400) K/mcL Neutrophils # 7.5 (1.6-8.9) K/mcL BMP 06/29/19 06/30/19 17:23 04:20 Sodium 138 139 Potassium 3.6 3.9 Chloride 110 H 109 H Carbon Dioxide 22 L 24 BUN 9 9 Creatinine 0.90 0.97 Glucose 97 103 Calcium 7.5 L 7.6 L Liver Function 06/29/19 06/30/19 Range/Units 17:23 04:20 Total Bilirubin 0.4 0.4 (0.3-1.0) mg/dL AST 18 18 (13-39) Units/L ALT 14 13 (7-52) Units/L Alkaline Phosphatase 53 53 (34-104) Units/L Albumin 2.6 L 2.6 L (3.5-5.7) g/dL Urine 06/28/19 Range/Units 17:36 Urine Color Yellow (Yellow) Urine Clarity Clear (Clear) Urine pH 5.5 (5.0-8.0) pH Units Ur Specific [place] 1.015 (1.010-1.025) Urine Protein Trace (Neg-Trace) mg/dL Urine Glucose (UA) Normal (Normal) mg/dL - ABG Interpretation ABG results: PT/INR, D-dimer PT 17.3 Seconds (9.4-12.1) H 06/30/19 04:20 - Impressions Impressions Chest X-Ray 06/29/19 11:34 IMPRESSION: Minimal bibasilar atelectasis. D/ / 06/29/2019 13:59:47 Iván Vega MD / [facility] Interpreting Provider: Iván Vega MD Head CT 06/29/19 17:26 IMPRESSION: No acute intracranial abnormality, and no interval change from recent CT. D/ / Bobby Bowens MD / Bobby Bowens MD Interpreting Provider: Bobby Bowens MD Abdomen/Pelvis CT 06/29/19 17:36 IMPRESSION: 1. Moderate mucosal thickening of the sigmoid colon and rectum similar to prior imaging in a patient with suspected colitis. Perhaps slight more proximal extent of mucosal changes within the sigmoid colon. 2. The proximal GI tract is unremarkable. 3. Small bilateral pleural effusions have developed and there is dense airspace opacification in the visualized lower lobes. This may represent aspiration, pulmonary edema or developing pneumonitis. D/ / Bobby Bowens MD / Bobby Bowens MD Interpreting Provider: Bobby Bowens MD Consult Discharge Plan - Plan Referrals: Luis Langford DO [Primary Care Provider] - <Jonnie Borges - Last Filed: 06/30/19 21:18> Hospitalist Progress Note - Encounter Date of Encounter: 06/30/19 - Exam Vitals: Temp Pulse Resp BP Pulse Ox 97.7 F 79 17 130/75 98 06/30/19 19:35 06/30/19 19:35 06/30/19 19:35 06/30/19 19:35 06/30/19 19:35 - Assessment and Plan (1) Colitis Current Visit: Yes Status: Acute (2) Hyperlipidemia Current Visit: Yes Status: Chronic (3) Mechanical heart valve present Current Visit: Yes Status: Acute (4) Hypokalemia Current Visit: Yes Status: Acute - Time Spent with Patient Total time spent is greater than 50% in coordination of care (as documented) at patient's floor/unit and/or counseling patient: Internal Medicine: Result - Labs CBC & Chem 7: 06/30/19 04:20 06/30/19 04:20 Labs: Short CBC 06/30/19 Range/Units 04:20 WBC 10.0 (4.3-11.1) K/mcL Hgb 10.2 L (12.9-16.9) g/dL Hct 30.2 L (37.5-50.1) % Plt Count 200 (140-400) K/mcL BMP 06/30/19 04:20 Sodium 139 Potassium 3.9 Chloride 109 H Carbon Dioxide 24 BUN 9 Creatinine 0.97 Glucose 103 Calcium 7.6 L Liver Function 06/30/19 Range/Units 04:20 Total Bilirubin 0.4 (0.3-1.0) mg/dL AST 18 (13-39) Units/L ALT 13 (7-52) Units/L Alkaline Phosphatase 53 (34-104) Units/L Albumin 2.6 L (3.5-5.7) g/dL - ABG Interpretation ABG results: PT/INR, D-dimer PT 17.3 Seconds (9.4-12.1) H 06/30/19 04:20 - Attending Attestation I examined this patient and my medical decision-making was reviewed with the resident physician. I agree with the documented findings, disposition and treatment plan as described except to the extent set forth below. Mental status has improved, he is at baseline mental status, no complaints, but does exhibit signs of tenderness with palpation. Clinically appears better. Continue current management. <Jose Miguel Dixon - Last Filed: 06/30/19 14:26> (2) Pneumonia Qualifiers: Pneumonia type: due to unspecified organism Laterality: unspecified laterality Lung location: unspecified part of lung Qualified Code(s): J18.9 - Pneumonia, unspecified organism (3) Hyperlipidemia Qualifiers: Hyperlipidemia type: unspecified Qualified Code(s): E78.5 - Hyperlipidemia, unspecified (6) Fall Qualifiers: Encounter type: sequela Qualified Code(s): W19.XXXS - Unspecified fall, sequela (7) Altered mental status Qualifiers: Altered mental status type: delirium Qualified Code(s): R41.0 - Disorientation, unspecified <Jonnie Borges - Last Filed: 06/30/19 21:18> (2) Hyperlipidemia Qualifiers: Hyperlipidemia type: unspecified Qualified Code(s): E78.5 - Hyperlipidemia, unspecified
[2019-07-01] MEDS: Piperacillin/Tazobactam 3.375 GM in 0.9 % Sodium Chloride Mini Bag 100 ML IVPB SCH ×3 (04:30→19:28)
[2019-07-01] MEDS: 0.9 % Sodium Chloride 1,000 ML IVC SCH (07:36)
[2019-07-01 10:04] LABS: Basophils % 0.5 %; Eosinophils # 0.4 K/mcL (0.0-0.6); Eosinophils % 5.4 %; Hematocrit 29.5 % (37.5-50.1); Hemoglobin 9.6 g/dL (12.9-16.9); Immature Granulocytes % 0.8 % (0-4); Lymphocytes # 0.9 K/mcL (0.6-4.6); Mean Corpuscular HGB Conc 32.5 g/dL (31.6-35.5); Mean Corpuscular Hemoglobin 31.4 pg (28.0-33.3); Mean Corpuscular Volume 96.4 fL (83.0-100.0); Mean Platelet Volume 9.9 fL (9.4-12.4); Monocytes # 0.7 K/mcL (0.0-1.3); Monocytes % 8.3 %; Neutrophils # 5.8 K/mcL (1.6-8.9); Platelet Count 194 K/mcL (140-400); Red Blood Count 3.06 M/mcL (4.19-5.50); Red Cell Distribution Width 13.2 % (11.5-14.5); White Blood Count 7.8 K/mcL (4.3-11.1)
[2019-07-01 10:15] LABS: Alanine Aminotransferase 14 Units/L (7-52); Albumin 2.6 g/dL (3.5-5.7); Albumin/Globulin Ratio 1.1 (1.1-2.2); Alkaline Phosphatase 46 Units/L (34-104); Aspartate Amino Transferase 16 Units/L (13-39); BUN/Creatinine Ratio 11 (6-26); Bilirubin,Total 0.4 mg/dL (0.3-1.0); Blood Urea Nitrogen 10 mg/dL (8-23); C-Reactive Protein 73 mg/L (Less than 10); Calcium 7.6 mg/dL (8.6-10.3); Carbon Dioxide 23 mEq/L (23-29); Chloride 112 mEq/L (98-107); Globulin 2.4 g/dL (2.4-3.5); Glucose 104 mg/dL (70-105); Osmolality,Calculated 291 (280-300); Potassium 3.5 mEq/L (3.5-5.1); Sodium 141 mEq/L (136-145); eGFR For African Americans > 60 (> 60); eGFR For Non-African Americans > 60 (> 60)
--- NOTE | 2019-07-01 15:52 | Internal Med Progress Note ---
Hospitalist Progress Note - Encounter Date of Encounter: 07/01/19 Time of Encounter: 10:30 - Subjective Interval History: No complaints, no acute events. Family members at bedside. Patient denies abdominal pain, fevers/chills, n/v. - Exam Vitals: Temp Pulse Resp BP Pulse Ox 98.2 F 74 15 106/64 97 07/01/19 14:15 07/01/19 14:15 07/01/19 14:15 07/01/19 14:15 07/01/19 14:15 Exam: GEN: NAD, alert, cooperative with exam HEAD: Normocephalic, atraumatic. EYES: PERRL, EOMI, anicteric. ENT: MMM. oropharynx without erythema or drainage. NECK: Supple. No LAD. HEART: RRR LUNGS: CTAB, ABDO: Soft, mild diffuse tenderness, nondistended with active bowel sounds. No rebound/guarding/rigidity. : No suprapubic tenderness or CVA tenderness. BACK: No obvious stepoffs or deformities. EXT: Without cyanosis, clubbing or edema. SKIN: Warm and dry without any rash. NEURO: Grossly nonfocal. Alert and oriented to self only, moving all 4 extremities. CN II-XII grossly intact. PSYCH: Normal affect, no depressed or anxious mood. - Assessment and Plan (1) Colitis Current Visit: Yes Status: Acute Assessment and Plan: Clinically appears improved. Labs improving, CRP down to 73 today, appetite is slightly improved today. Continue Zosyn De escalate to Augmentin tomorrow, continue to encourage PO intake. PT/OT eval for possible swing bed on discharge. (2) Hyperlipidemia Current Visit: Yes Status: Chronic (3) Mechanical heart valve present Current Visit: Yes Status: Acute (4) Hypokalemia Current Visit: Yes Status: Acute (5) DVT prophylaxis Current Visit: Yes Status: Acute Assessment and Plan: heparin SQ - Time Spent with Patient Total time spent is greater than 50% in coordination of care (as documented) at patient's floor/unit and/or counseling patient: Internal Medicine: Result - Labs CBC & Chem 7: 07/01/19 09:36 07/01/19 09:36 Labs: Short CBC 07/01/19 Range/Units 09:36 WBC 7.8 (4.3-11.1) K/mcL Hgb 9.6 L (12.9-16.9) g/dL Hct 29.5 L (37.5-50.1) % Plt Count 194 (140-400) K/mcL Neutrophils # 5.8 (1.6-8.9) K/mcL BMP 07/01/19 09:36 Sodium 141 Potassium 3.5 Chloride 112 H Carbon Dioxide 23 BUN 10 Creatinine 0.94 Glucose 104 Calcium 7.6 L Liver Function 07/01/19 Range/Units 09:36 Total Bilirubin 0.4 (0.3-1.0) mg/dL AST 16 (13-39) Units/L ALT 14 (7-52) Units/L Alkaline Phosphatase 46 (34-104) Units/L Albumin 2.6 L (3.5-5.7) g/dL - ABG Interpretation ABG results: PT/INR, D-dimer PT 17.3 Seconds (9.4-12.1) H 06/30/19 04:20 Consult Discharge Plan - Plan Referrals: Luis Langford DO [Primary Care Provider] - (2) Hyperlipidemia Qualifiers: Hyperlipidemia type: unspecified Qualified Code(s): E78.5 - Hyperlipidemia, unspecified
[2019-07-01] MEDS: *HR* Heparin 5,000 UNIT/ML VIAL SQ SCH (17:27)
[2019-07-02] MEDS: *HR* Heparin 5,000 UNIT/ML VIAL SQ SCH ×2 (06:20→18:13)
--- NOTE | 2019-07-02 08:38 | Internal Med Progress Note ---
Hospitalist Progress Note - Encounter Date of Encounter: 07/02/19 Time of Encounter: 14:04 - Subjective Interval History: No acute events. Patient ate breakfast, sitting up in chair. Daughter at bedside. - Exam Vitals: Temp Pulse Resp BP Pulse Ox 99.3 F 69 14 152/74 94 07/02/19 06:22 07/02/19 06:22 07/02/19 06:22 07/02/19 06:22 07/02/19 06:22 Exam: GEN: NAD, alert, cooperative with exam, sitting up in chair HEAD: Normocephalic, atraumatic. EYES: PERRL, EOMI, anicteric. ENT: MMM. oropharynx without erythema or drainage. HEART: RRR LUNGS: CTAB, ABDO: Soft, mild diffuse tenderness, nondistended with active bowel sounds. No rebound/guarding/rigidity. : No suprapubic tenderness or CVA tenderness. BACK: No obvious stepoffs or deformities. EXT: Without cyanosis, clubbing or edema. SKIN: Warm and dry without any rash. NEURO: Grossly nonfocal. Alert and oriented to self only, moving all 4 extremities. CN II-XII grossly intact. PSYCH: Normal affect, no depressed or anxious mood. - Assessment and Plan (1) Colitis Current Visit: Yes Status: Acute Assessment and Plan: Clinically appears improved. Labs improving, appetite better, activity better De escalated to Augmentin today PT/OT eval tomorrow when services available for possible swing bed (2) Hyperlipidemia Current Visit: Yes Status: Chronic (3) Mechanical heart valve present Current Visit: Yes Status: Acute (4) Hypokalemia Current Visit: Yes Status: Acute Assessment and Plan: Replace as needed (5) DVT prophylaxis Current Visit: Yes Status: Acute Assessment and Plan: heparin SQ - Time Spent with Patient Total time spent is greater than 50% in coordination of care (as documented) at patient's floor/unit and/or counseling patient: Internal Medicine: Result - Labs CBC & Chem 7: 07/02/19 10:00 07/02/19 10:00 Labs: Short CBC 07/01/19 Range/Units 09:36 WBC 7.8 (4.3-11.1) K/mcL Hgb 9.6 L (12.9-16.9) g/dL Hct 29.5 L (37.5-50.1) % Plt Count 194 (140-400) K/mcL Neutrophils # 5.8 (1.6-8.9) K/mcL BMP 07/01/19 09:36 Sodium 141 Potassium 3.5 Chloride 112 H Carbon Dioxide 23 BUN 10 Creatinine 0.94 Glucose 104 Calcium 7.6 L Liver Function 07/01/19 Range/Units 09:36 Total Bilirubin 0.4 (0.3-1.0) mg/dL AST 16 (13-39) Units/L ALT 14 (7-52) Units/L Alkaline Phosphatase 46 (34-104) Units/L Albumin 2.6 L (3.5-5.7) g/dL - ABG Interpretation ABG results: PT/INR, D-dimer PT 17.3 Seconds (9.4-12.1) H 06/30/19 04:20 Consult Discharge Plan - Plan Referrals: Luis Langford DO [Primary Care Provider] - (2) Hyperlipidemia Qualifiers: Hyperlipidemia type: unspecified Qualified Code(s): E78.5 - Hyperlipidemia, unspecified
[2019-07-02] MEDS: Aspirin 325 MG TABLET PO SCH (08:54)
[2019-07-02] MEDS: Multivit/Ca/Min/Fe/FA 1 TAB TABLET PO SCH (08:54)
[2019-07-02 10:16] LABS: Hemoglobin 10.8 g/dL (12.9-16.9); Mean Corpuscular HGB Conc 32.7 g/dL (31.6-35.5); Mean Corpuscular Volume 94.8 fL (83.0-100.0); Mean Platelet Volume 9.9 fL (9.4-12.4); Platelet Count 212 K/mcL (140-400); Red Blood Count 3.48 M/mcL (4.19-5.50); Red Cell Distribution Width 13.2 % (11.5-14.5); White Blood Count 6.8 K/mcL (4.3-11.1)
[2019-07-02 10:18] LABS: VBG Ionized Calcium 1.13 mmol/L (1.15-1.35)
[2019-07-02 10:34] LABS: BUN/Creatinine Ratio 11 (6-26); Blood Urea Nitrogen 11 mg/dL (8-23); Calcium 7.9 mg/dL (8.6-10.3); Carbon Dioxide 22 mEq/L (23-29); Chloride 107 mEq/L (98-107); Glucose 138 mg/dL (70-105); Magnesium 1.8 mg/dL (1.6-2.6); Osmolality,Calculated 290 (280-300); Phosphorous 2.8 mg/dL (2.7-4.5); Potassium 3.5 mEq/L (3.5-5.1); Sodium 139 mEq/L (136-145); eGFR For African Americans > 60 (> 60); eGFR For Non-African Americans > 60 (> 60)
[2019-07-02 10:45] LABS: Eosinophils # 0.5 K/mcL (0.0-0.6); Lymphocytes # 1.2 K/mcL (0.6-4.6); Monocytes # 0.3 K/mcL (0.0-1.3); Neutrophils # 4.8 K/mcL (1.6-8.9); Platelet Estimate Normal (Normal)
[2019-07-03] MEDS: *HR* Heparin 5,000 UNIT/ML VIAL SQ SCH ×2 (05:00→16:25)
[2019-07-03 05:55] LABS: Basophils % 0.4 %; Eosinophils # 0.4 K/mcL (0.0-0.6); Eosinophils % 4.9 %; Hematocrit 30.3 % (37.5-50.1); Immature Granulocytes % 0.6 % (0-4); Lymphocytes # 1.4 K/mcL (0.6-4.6); Lymphocytes % 18.9 %; Mean Corpuscular Hemoglobin 31.1 pg (28.0-33.3); Mean Corpuscular Volume 94.1 fL (83.0-100.0); Mean Platelet Volume 9.9 fL (9.4-12.4); Monocytes # 0.7 K/mcL (0.0-1.3); Neutrophils # 4.7 K/mcL (1.6-8.9); Platelet Count 198 K/mcL (140-400); Red Blood Count 3.22 M/mcL (4.19-5.50); Red Cell Distribution Width 13.2 % (11.5-14.5); Segmented Neutrophils % 65.2 %; White Blood Count 7.2 K/mcL (4.3-11.1)
[2019-07-03 06:03] LABS: VBG Ionized Calcium 1.19 mmol/L (1.15-1.35)
[2019-07-03 06:14] LABS: BUN/Creatinine Ratio 13 (6-26); Blood Urea Nitrogen 12 mg/dL (8-23); Calcium 7.9 mg/dL (8.6-10.3); Carbon Dioxide 25 mEq/L (23-29); Chloride 107 mEq/L (98-107); Glucose 96 mg/dL (70-105); Magnesium 1.8 mg/dL (1.6-2.6); Osmolality,Calculated 290 (280-300); Phosphorous 3.1 mg/dL (2.7-4.5); Potassium 3.5 mEq/L (3.5-5.1); Sodium 140 mEq/L (136-145); eGFR For African Americans > 60 (> 60); eGFR For Non-African Americans > 60 (> 60)
--- NOTE | 2019-07-03 08:48 | Internal Med Progress Note ---
Hospitalist Progress Note - Encounter Date of Encounter: 07/03/19 Time of Encounter: 08:47 - Exam Vitals: Temp Pulse Resp BP Pulse Ox 98.4 F 71 18 130/77 93 07/03/19 07:30 07/03/19 07:30 07/03/19 07:30 07/03/19 07:30 07/03/19 07:30 - Assessment and Plan (1) Colitis Current Visit: Yes Status: Acute (2) Pneumonia Current Visit: Yes Status: Acute (3) Hyperlipidemia Current Visit: Yes Status: Chronic (4) Mechanical heart valve present Current Visit: Yes Status: Acute (5) Hypokalemia Current Visit: Yes Status: Acute (6) Fall Current Visit: Yes Status: Acute (7) Altered mental status Current Visit: Yes Status: Acute - Time Spent with Patient Total time spent is greater than 50% in coordination of care (as documented) at patient's floor/unit and/or counseling patient: Internal Medicine: Result - Labs CBC & Chem 7: 07/03/19 05:38 07/03/19 05:38 Labs: Short CBC 07/02/19 07/03/19 Range/Units 10:00 05:38 WBC 6.8 7.2 (4.3-11.1) K/mcL Hgb 10.8 L 10.0 L (12.9-16.9) g/dL Hct 33.0 L 30.3 L (37.5-50.1) % Plt Count 212 198 (140-400) K/mcL Neutrophils # 4.8 4.7 (1.6-8.9) K/mcL BMP 07/02/19 07/03/19 10:00 05:38 Sodium 139 140 Potassium 3.5 3.5 Chloride 107 107 Carbon Dioxide 22 L 25 BUN 11 12 Creatinine 0.97 0.91 Glucose 138 H 96 Calcium 7.9 L 7.9 L - ABG Interpretation ABG results: PT/INR, D-dimer PT 17.3 Seconds (9.4-12.1) H 06/30/19 04:20 Consult Discharge Plan - Plan Referrals: Luis Langford DO [Primary Care Provider] - (2) Pneumonia Qualifiers: Pneumonia type: due to unspecified organism Laterality: unspecified laterality Lung location: unspecified part of lung Qualified Code(s): J18.9 - Pneumonia, unspecified organism (3) Hyperlipidemia Qualifiers: Hyperlipidemia type: unspecified Qualified Code(s): E78.5 - Hyperlipidemia, unspecified (6) Fall Qualifiers: Encounter type: sequela Qualified Code(s): W19.XXXS - Unspecified fall, sequela (7) Altered mental status Qualifiers: Altered mental status type: delirium Qualified Code(s): R41.0 - Disorie ntation, unspecified
[2019-07-03] MEDS: Aspirin 325 MG TABLET PO SCH (09:31)
[2019-07-03] MEDS: Multivit/Ca/Min/Fe/FA 1 TAB TABLET PO SCH (09:31)
--- NOTE | 2019-07-03 13:59 | Discharge Summary ---
<Jose Miguel Dixon - Last Filed: 07/03/19 17:03> - NOTES TO OUTPATIENT PROVIDER Notes to Outpatient Provider: Please follow up with patient in 1-2 to discuss hospitalization and for further care. Patient was admitted for colitis. Will be discharged with 9 days of Augmentin. To continue other home medications. Please follow up on blood cultures which showed no growth to date after 4 days. Orders not resulted at time of discharge: Pending orders 06/29/19 17:43 Culture,Blood [BC] Stat Date of Encounter: 07/03/19 Time of Encounter: 13:56 - Discharge Diagnosis (1) Colitis Priority: Primary Status: Acute (2) Pneumonia Priority: Secondary Status: Resolved Qualifiers: Pneumonia type: due to unspecified organism Laterality: unspecified laterality Lung location: unspecified part of lung Qualified Code(s): J18.9 - Pneumonia, unspecified organism (3) Hyperlipidemia Priority: Secondary Status: Chronic Qualifiers: Hyperlipidemia type: unspecified Qualified Code(s): E78.5 - Hyperlipidemia, unspecified (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 Teresa is a 84 year old male with past medical history of multiple CVA, status post recent aortic valve replacement in May who presented to the ER with persistent abdominal pain associated with diarrhea for the last several days. The patient described the pain to be on the right lower quadrant, dull aching in character with no radiation and progressively worsening over the last 3 days. The patient denies chest pain, diaphoresis, fever, chills, shortness of breath, nausea, vomiting and blood per rectum the patient was evaluated by the ER staff and imaging studies was suggestive of colitis, the patient was treated empirically with metronidazole and ciprofloxacin and was admitted for further evaluation and management. A CT scan showed rectosigmoid wall thickening with serosal haziness consistent with colitis/rectal proctitis. On 8/16 antibiotics were changed to Zosyn to cover for suspect pneumonia. CT abdomen and pelvis noted increased bilateral pleural effusions and airspace opacification in the lower lobes. MRSA swab was negative. She does have a history of recurrent falls and had a questionable fall prior to admission. CT head was obtained which showed no acute intracranial abnormalities. During his stay, patient was periodically more agitated and confused. Likely due to delirium versus onset of pneumonia. At time of discharge, patient was mentating normally and was less confused after treatment with antibiotics. He will be discharged with follow-up to his primary care provider. To continue on a course of Augmentin. Return precautions were provided. At discharge patient is improving and progressing back to baseline. Discharge discussed with: patient Time spent discussing smoking cessation with patient: 3 to 10 minutes - Time Spent with Patient Total time spent providing and/or coordinating discharge services: Time spent: Less than 30 minutes - Discharge Medications Prescriptions: New Amoxicillin/Clavulanate [Augmentin] 875 mg PO BIDWM 9 Days #18 tablet Continued Pravastatin Sodium [Pravachol] 40 mg PO DAILY Aspirin 325 mg PO DAILY Ferrous Sulfate [Iron] 325 mg PO TID Home Medications: Aspirin 325 mg PO DAILY 06/27/19 [History] Ferrous Sulfate [Iron] 325 mg PO TID 06/27/19 [History] Pravastatin Sodium [Pravachol] 40 mg PO DAILY 06/27/19 [History] Amoxicillin/Clavulanate [Augmentin] 875 mg PO BIDWM 9 Days #18 tablet 07/03/19 [Rx] Allergies/Adverse Reactions: Allergy/AdvReac Type Severity Reaction Status Date / Time atorvastatin [From Lipitor] Allergy Muscle Pain Verified 06/27/19 19:57 "anti anxiety medicine" Allergy See Uncoded 09/09/17 13:38 Comments Date of admission: 06/27/19 21:24 Primary care physician: Luis Langford DO Consults: 06/28/19 16:59 Consult to Physical Therapy [CONS] Routine Comment: Evaluate, develop and implement POC Reason for Consult: deconditioning, bmat3 Does patient have active BEDREST order?: No Is patient medically & hemodynamically stable?: Yes Patient assessed for mobility or mobilized this visit?: No 06/28/19 17:00 Consult to Occupational Therapy [CONS] Routine Comment: Evaluate, develop and implement POC Reason for Consult: deconditioning, bmat 3 Does patient have active BEDREST order?: No Is patient medically & hemodynamically stable?: Yes Patient assessed for mobility or mobilized this visit?: No Discharging clinician: Jonnie Borges Anticipated date of discharge: 07/03/19 - Constitutional Vitals: Temp Pulse Resp BP Pulse Ox 98.4 F 71 18 130/77 93 07/03/19 07:30 07/03/19 07:30 07/03/19 07:30 07/03/19 07:30 07/03/19 09:36 General appearance: Present: A&O X 0 Exam: GEN: Well-appearing, NAD, conversant. HEAD: Normocephalic, atraumatic. EYES: PERRL, EOMI, anicteric. ENT: MMM. oropharynx without erythema or drainage. NECK: Supple. No LAD. No stiffness or restricted ROM. No tracheal deviation. HEART: Regular rate and regular rhythm, normal S1/S2, no m/r/g. LUNGS: CTAB, good air exchange bilaterally. No wheezing, rubs, or rhonchi. ABDO: Soft, nontender, nondistended with active bowel sounds. : No suprapubic tenderness or CVA tenderness. BACK: No obvious stepoffs or deformities. EXT: Without cyanosis, clubbing or edema. SKIN: Warm and dry without any rash. NEURO: Grossly nonfocal. Alert and oriented, moving all 4 extremities. CN not formally tested but appear grossly intact. PSYCH: Normal affect, no depressed or anxious mood. - Patient Status Disposition: Transfer Inpatient Rehab Fac Condition: Fair Functional capacity at discharge: uses cane/walker Overall status at discharge: patient is progressing back to baseline - Discharge Instructions Instructions: Irritable Bowel Syndrome (DC) Follow Up With: Luis Langford DO [Primary Care Provider] - Additional Instructions: You have been admitted to the hospital for treatment of colitis. You were treated with IV antibiotics. Please continue take your augmentin antibiotics which is 875 mg tablet by mouth twice a day with meals for another 9 days. Continue taking the rest of her home medications. Please follow up with your primary care provider in the next 1-2 weeks to discuss your hospitalization for further management and evaluation. Wheeze return to the emergency department if you worsening of her symptoms, such as increased abdominal pain, chest pain, shortness of breath, nausea, vomiting, fevers, chills. - Diet and Activity Activity: ambulate only with your walker, as per physical therapy, increase activity as tolerated, resume usual activities as tolerated Diet: regular diet <Jonnie Borges - Last Filed: 07/03/19 18:15> Orders not resulted at time of discharge: Pending orders 06/29/19 17:43 Culture,Blood [BC] Stat Date of Encounter: 07/03/19 - Discharge Diagnosis (1) Colitis Status: Acute (2) Hyperlipidemia Status: Chronic Qualifiers: Hyperlipidemia type: unspecified Qualified Code(s): E78.5 - Hyperlipidemia, unspecified (3) Mechanical heart valve present Status: Chronic (4) Hypokalemia Status: Resolved (5) Altered mental status Status: Resolved Qualifiers: Altered mental status type: delirium Qualified Code(s): R41.0 - Disorientation, unspecified Hospital course: Mr. Teresa is a 84 year old male - Time Spent with Patient Total time spent providing and/or coordinating discharge services: Date of admission: 06/27/19 21:24 Primary care physician: Luis Langford DO Consults: 06/28/19 16:59 Consult to Physical Therapy [CONS] Routine Comment: Evaluate, develop and implement POC Reason for Consult: deconditioning, bmat3 Does patient have active BEDREST order?: No Is patient medically & hemodynamically stable?: Yes Patient assessed for mobility or mobilized this visit?: No 06/28/19 17:00 Consult to Occupational Therapy [CONS] Routine Comment: Evaluate, develop and implement POC Reason for Consult: deconditioning, bmat 3 Does patient have active BEDREST order?: No Is patient medically & hemodynamically stable?: Yes Patient assessed for mobility or mobilized this visit?: No - Constitutional Vitals: Temp Pulse Resp BP Pulse Ox 98.4 F 71 18 130/77 93 07/03/19 07:30 07/03/19 07:30 07/03/19 07:30 07/03/19 07:30 07/03/19 09:36 - Attending Attestation I examined this patient and my medical decision-making was reviewed with the resident physician. I agree with the documented findings, disposition and treatment plan as described except to the extent set forth below.
--- NOTE | 2019-07-03 17:35 | Physician Discharge Referral ---
ExtendedCare Referral Info Transfer To: [facility] Provider in Charge: Dr. 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 (5) Hypokalemia Priority: Secondary Status: Resolved (6) Fall Priority: Secondary Status: Chronic (7) Altered mental status Priority: Secondary Status: Resolved - Transfer Medications Home Medications: Aspirin 325 mg PO DAILY 06/27/19 [History] Ferrous Sulfate [Iron] 325 mg PO TID 06/27/19 [History] Pravastatin Sodium [Pravachol] 40 mg PO DAILY 06/27/19 [History] Amoxicillin/Clavulanate [Augmentin] 875 mg PO BIDWM 9 Days #18 tablet 07/03/19 [Rx] Allergies/Adverse Reactions: Allergy/AdvReac Type Severity Reaction Status Date / Time atorvastatin [From Lipitor] Allergy Muscle Pain Verified 06/27/19 19:57 "anti anxiety medicine" Allergy See Uncoded 09/09/17 13:38 Comments - Respiratory Orders None Smoking Cessation: Smoking cessation has been advised. For more information, call the [place] Tobacco Quit Line at 1-567-ZUFGNOW. - Advance Directives Code Status: Full Code - Mobility Orders Ambulate - Rehabiliation Orders Rehab Potential: Good Rehab Orders: Evaluation for Physical Therapy, Evaluation for Occupational Therapy - Diet Orders Regular CERTIFICATION: I certify that the transfer of the above named patient to an Extended Care Facility is necessary for the continuing treatment of the diagnosis listed. The above information is true and accurate reflection of patient's current condition. Confidential - Redisclosure prohibited without a patient's written consent.
[2019-07-03 18:58] VITALS: BP 141/68
== END 2019-07-03 19:40 | disposition other institution (70) ==
LOC: 3ANU 15:37 → EMEROOARM 15:37 → SUATTDRO 21:24 → 3ANU 21:35
PROVIDERS: ADMIT Internal Medicine Nephrology; ATTEND Student in an Organized Health Care Education/Training Program

== ENCOUNTER 2019-10-13 13:44 | Inpatient (IN) ==
[2019-10-13 14:26] LABS: Basophils % 0.6 %; Eosinophils # 0.3 K/mcL (0.0-0.6); Eosinophils % 3.8 %; Hematocrit 35.4 % (37.5-50.1); Hemoglobin 11.7 g/dL (12.9-16.9); Immature Granulocytes % 0.3 % (0-4); Lymphocytes # 0.8 K/mcL (0.6-4.6); Lymphocytes % 12.2 %; Mean Corpuscular HGB Conc 33.1 g/dL (31.6-35.5); Mean Corpuscular Hemoglobin 31.3 pg (28.0-33.3); Mean Corpuscular Volume 94.7 fL (83.0-100.0); Mean Platelet Volume 10.5 fL (9.4-12.4); Monocytes # 0.8 K/mcL (0.0-1.3); Monocytes % 11.7 %; Neutrophils # 4.8 K/mcL (1.6-8.9); Platelet Count 194 K/mcL (140-400); Red Blood Count 3.74 M/mcL (4.19-5.50); Red Cell Distribution Width 13.7 % (11.5-14.5); Segmented Neutrophils % 71.4 %; White Blood Count 6.7 K/mcL (4.3-11.1)
[2019-10-13 14:37] LABS: INR 1.1; Prothrombin Time 12.6 Seconds (9.4-12.1)
[2019-10-13 14:39] LABS: Activated Partial Thrombo Time 33.1 Seconds (26.0-36.0)
[2019-10-13 14:49] LABS: Alanine Aminotransferase 11 Units/L (7-52); Albumin 3.7 g/dL (3.5-5.7); Albumin/Globulin Ratio 1.2 (1.1-2.2); Alkaline Phosphatase 68 Units/L (34-104); Aspartate Amino Transferase 17 Units/L (13-39); BUN/Creatinine Ratio 19 (6-26); Bilirubin,Direct 0.2 mg/dL (0.0-0.2); Bilirubin,Indirect 0.4 mg/dL (0.0-1.0); Bilirubin,Total 0.6 mg/dL (0.3-1.0); Blood Urea Nitrogen 21 mg/dL (8-23); Carbon Dioxide 31 mEq/L (23-29); Chloride 99 mEq/L (98-107); Ethanol < 10 mg/dL (Less than 10); Globulin 3.2 g/dL (2.4-3.5); Glucose 114 mg/dL (70-105); Osmolality,Calculated 296 (280-300); Potassium 3.6 mEq/L (3.5-5.1); Sodium 141 mEq/L (136-145); Total Protein 6.9 g/dL (6.4-8.9); Troponin I < 0.03 ng/mL (< 0.04); eGFR For African Americans > 60 (> 60); eGFR For Non-African Americans > 60 (> 60)
[2019-10-13 15:27] LABS: Bilirubin,Urine Negative (Negative); Blood,Urine Negative (Negative); Clarity,Urine Clear (Clear); Color,Urine Yellow (Yellow); Glucose,Urine (UA) Normal (Normal); Ketones,Urine Negative (Negative); Leukocyte Esterase,Urine Negative (Negative); Nitrite,Urine Negative (Negative); PH,Urine 6.5 pH Units (5.0-8.0); Protein,Urine 30 mg/dL (Neg-Trace); Specific Gravity,Urine 1.026 (1.010-1.025); Urobilinogen,Urine Normal (Normal)
[2019-10-13 15:30] LABS: Hyaline Casts,Urine Few per lpf (None-Few); RBC,Urine 0-3 per hpf (0-3); Squamous Epithelial Cell,Urine Many per lpf (None-Few); WBC,Urine 0-3 per hpf (0-3)
[2019-10-13 15:33] LABS: Amphetamine Screen,Urine Negative ng/mL (Cutoff=1000); Barbiturate Screen,Urine Negative ng/mL (Cutoff=200); Benzodiazepines Screen,Urine Negative ng/mL (Cutoff=200); Cannabinoid Screen,Urine Negative ng/mL (Cutoff = 50); Cocaine Screen,Urine Negative ng/mL (Cutoff= 300); Opiate Screen,Urine Negative ng/mL (Cutoff=300); Phencyclidine Screen,Urine Negative ng/mL (Cutoff=25)
[2019-10-13 15:40] LABS: Amorphous Sediment,Urine Moderate (Few); Bacteria,Urine Few per hpf (None-Few); Renal Epithelial Cells,Urine Few per hpf (None-Few); Transitional Epi Cells,Urine Few per hpf (None-Few)
[2019-10-13] MEDS ORDERED: Naloxone 0.4 MG/ML INJ IVP PRN (16:56)
[2019-10-13] MEDS: Furosemide 20 MG/2 ML VIAL IVP SCH (20:37)
[2019-10-14] MEDS ORDERED: Haloperidol Lactate 5 MG/ML VIAL IVP ONE (02:24)
[2019-10-14] MEDS ORDERED: *HR* Promethazine 25 MG/ML VIAL IVP ONE (02:24)
[2019-10-14 05:54] LABS: Basophils % 0.6 %; Eosinophils # 0.4 K/mcL (0.0-0.6); Eosinophils % 5.9 %; Hematocrit 31.4 % (37.5-50.1); Hemoglobin 10.2 g/dL (12.9-16.9); Immature Granulocytes % 0.3 % (0-4); Lymphocytes # 1.2 K/mcL (0.6-4.6); Lymphocytes % 17.1 %; Mean Corpuscular HGB Conc 32.5 g/dL (31.6-35.5); Mean Corpuscular Hemoglobin 31.8 pg (28.0-33.3); Mean Corpuscular Volume 97.8 fL (83.0-100.0); Mean Platelet Volume 10.3 fL (9.4-12.4); Monocytes % 13.8 %; Neutrophils # 4.4 K/mcL (1.6-8.9); Platelet Count 163 K/mcL (140-400); Red Blood Count 3.21 M/mcL (4.19-5.50); Red Cell Distribution Width 13.6 % (11.5-14.5); Segmented Neutrophils % 62.3 %; White Blood Count 7.1 K/mcL (4.3-11.1)
[2019-10-14 06:09] LABS: BUN/Creatinine Ratio 18 (6-26); Blood Urea Nitrogen 24 mg/dL (8-23); Calcium 8.3 mg/dL (8.6-10.3); Carbon Dioxide 31 mEq/L (23-29); Chloride 103 mEq/L (98-107); Chol/HDL Ratio 2.9 (0-4.9); Glucose 101 mg/dL (70-105); Osmolality,Calculated 298 (280-300); Potassium 3.8 mEq/L (3.5-5.1); Sodium 142 mEq/L (136-145); eGFR For African Americans > 60 (> 60); eGFR For Non-African Americans 53 (> 60)
[2019-10-14] MEDS: Aspirin 325 MG TABLET PO SCH (07:54)
[2019-10-14] MEDS: Furosemide 20 MG/2 ML VIAL IVP SCH (07:54)
[2019-10-14] MEDS ORDERED: Furosemide 40 MG TABLET PO SCH (09:00)
[2019-10-14 12:05] LABS: Estimated Average Glucose 131 mg/dl
[2019-10-14 19:34] LABS: Folate 18.6 ng/mL (3.0-16.0)
[2019-10-15 02:40] LABS: Hematocrit 32.1 % (37.5-50.1); Hemoglobin 10.2 g/dL (12.9-16.9); Mean Corpuscular HGB Conc 31.8 g/dL (31.6-35.5); Mean Corpuscular Hemoglobin 30.9 pg (28.0-33.3); Mean Corpuscular Volume 97.3 fL (83.0-100.0); Mean Platelet Volume 10.5 fL (9.4-12.4); Platelet Count 163 K/mcL (140-400); Red Cell Distribution Width 13.6 % (11.5-14.5); White Blood Count 6.5 K/mcL (4.3-11.1)
[2019-10-15 02:58] LABS: BUN/Creatinine Ratio 23 (6-26); Blood Urea Nitrogen 29 mg/dL (8-23); Calcium 8.4 mg/dL (8.6-10.3); Carbon Dioxide 29 mEq/L (23-29); Chloride 103 mEq/L (98-107); Glucose 103 mg/dL (70-105); Osmolality,Calculated 294 (280-300); Potassium 3.8 mEq/L (3.5-5.1); Sodium 139 mEq/L (136-145); eGFR For African Americans > 60 (> 60); eGFR For Non-African Americans 56 (> 60)
[2019-10-15] MEDS: Aspirin 325 MG TABLET PO SCH (08:32)
[2019-10-15] MEDS: Furosemide 40 MG TABLET PO SCH (08:32)
[2019-10-15] MEDS ORDERED: Acetaminophen 325 MG TABLET PO PRN (17:55)
[2019-10-15] MEDS ORDERED: Lidocaine 4% CREAM (LMX) 5 GM TP PRN (17:56)
[2019-10-15] MEDS ORDERED: Haloperidol Lactate 5 MG/ML VIAL ONE ×2 (23:15→23:59)
[2019-10-15] MEDS ORDERED: *HR* Promethazine 25 MG/ML VIAL ONE (23:16)
[2019-10-15] MEDS: *HR* Promethazine 25 MG/ML VIAL IVP ONE ×2 (23:18→23:52)
[2019-10-15] MEDS: Haloperidol Lactate 5 MG/ML VIAL IVP ONE ×2 (23:18→23:51)
[2019-10-15] MEDS ORDERED: Haloperidol Lactate 5 MG/ML VIAL IVP ONE (23:55)
[2019-10-16] MEDS ORDERED: *HR* Promethazine 25 MG/ML VIAL IVP ONE (00:57)
[2019-10-16 06:29] LABS: Basophils % 0.4 %; Eosinophils # 0.2 K/mcL (0.0-0.6); Eosinophils % 2.4 %; Hematocrit 33.1 % (37.5-50.1); Hemoglobin 10.8 g/dL (12.9-16.9); Immature Granulocytes % 0.4 % (0-4); Lymphocytes # 0.9 K/mcL (0.6-4.6); Lymphocytes % 13.1 %; Mean Corpuscular HGB Conc 32.6 g/dL (31.6-35.5); Mean Corpuscular Hemoglobin 31.2 pg (28.0-33.3); Mean Corpuscular Volume 95.7 fL (83.0-100.0); Mean Platelet Volume 10.6 fL (9.4-12.4); Monocytes # 0.9 K/mcL (0.0-1.3); Monocytes % 12.9 %; Neutrophils # 4.8 K/mcL (1.6-8.9); Platelet Count 183 K/mcL (140-400); Red Blood Count 3.46 M/mcL (4.19-5.50); Red Cell Distribution Width 13.4 % (11.5-14.5); Segmented Neutrophils % 70.8 %; White Blood Count 6.7 K/mcL (4.3-11.1)
[2019-10-16 06:54] LABS: BUN/Creatinine Ratio 20 (6-26); Blood Urea Nitrogen 22 mg/dL (8-23); Calcium 8.4 mg/dL (8.6-10.3); Carbon Dioxide 28 mEq/L (23-29); Chloride 103 mEq/L (98-107); Glucose 97 mg/dL (70-105); Magnesium 1.8 mg/dL (1.6-2.6); Osmolality,Calculated 297 (280-300); Potassium 3.4 mEq/L (3.5-5.1); Sodium 142 mEq/L (136-145); eGFR For African Americans > 60 (> 60); eGFR For Non-African Americans > 60 (> 60)
[2019-10-16] MEDS: Aspirin 325 MG TABLET PO SCH (12:00)
[2019-10-16] MEDS: Furosemide 40 MG TABLET PO SCH (12:00)
[2019-10-16] MEDS ORDERED: Ziprasidone 10 MG in Water for inj. (sterile) 0.5 ML IM ONE (23:05)
[2019-10-17] MEDS ORDERED: Potassium Chloride Elixir 20 MEQ/15 ML UDC PO ONE (08:12)
[2019-10-17] MEDS: Aspirin 325 MG TABLET PO SCH (10:58)
[2019-10-17] MEDS: Furosemide 40 MG TABLET PO SCH (10:59)
[2019-10-17] MEDS ORDERED: Haloperidol Lactate 5 MG/ML VIAL IVP PRN (22:28)
[2019-10-18] MEDS: *HR* Promethazine 25 MG/ML VIAL IVP PRN ×4 (07:01→17:35)
[2019-10-18] MEDS: Furosemide 40 MG TABLET PO SCH (08:50)
[2019-10-18] MEDS: Aspirin 325 MG TABLET PO SCH (08:50)
[2019-10-18] MEDS ORDERED: Haloperidol Lactate 5 MG/ML VIAL IVP ONE (17:17)
[2019-10-18] MEDS ORDERED: *HR* Promethazine 25 MG/ML VIAL ONE (17:22)
[2019-10-19] MEDS ORDERED: Potassium Chloride Elixir 20 MEQ/15 ML UDC PO SCH (09:00)
[2019-10-19] MEDS: Aspirin 325 MG TABLET PO SCH (09:15)
[2019-10-19] MEDS: Furosemide 40 MG TABLET PO SCH (09:15)
[2019-10-19 12:56] LABS: Basophils # 0.1 K/mcL (0.0-0.2); Eosinophils # 0.5 K/mcL (0.0-0.6); Eosinophils % 7.1 %; Hematocrit 35.5 % (37.5-50.1); Hemoglobin 11.3 g/dL (12.9-16.9); Immature Granulocytes % 0.3 % (0-4); Lymphocytes % 13.1 %; Mean Corpuscular HGB Conc 31.8 g/dL (31.6-35.5); Mean Corpuscular Hemoglobin 31.4 pg (28.0-33.3); Mean Corpuscular Volume 98.6 fL (83.0-100.0); Mean Platelet Volume 10.6 fL (9.4-12.4); Monocytes # 0.9 K/mcL (0.0-1.3); Monocytes % 12.6 %; Neutrophils # 4.8 K/mcL (1.6-8.9); Platelet Count 222 K/mcL (140-400); Red Cell Distribution Width 13.6 % (11.5-14.5); Segmented Neutrophils % 65.9 %; White Blood Count 7.3 K/mcL (4.3-11.1)
[2019-10-19 13:15] LABS: BUN/Creatinine Ratio 23 (6-26); Blood Urea Nitrogen 26 mg/dL (8-23); Calcium 8.6 mg/dL (8.6-10.3); Carbon Dioxide 27 mEq/L (23-29); Chloride 104 mEq/L (98-107); Glucose 90 mg/dL (70-105); Osmolality,Calculated 294 (280-300); Potassium 3.7 mEq/L (3.5-5.1); Sodium 140 mEq/L (136-145); eGFR For African Americans > 60 (> 60); eGFR For Non-African Americans > 60 (> 60)
[2019-10-19] MEDS ORDERED: Cyanocobalamin (B-12) 1,000 MCG/ML VIAL IM ONE (13:31)
[2019-10-20] MEDS: Aspirin 325 MG TABLET PO SCH (08:30)
[2019-10-20] MEDS: Furosemide 40 MG TABLET PO SCH (08:31)
[2019-10-20] MEDS: Cyanocobalamin (B-12) 1,000 MCG TABLET PO SCH (08:31)
[2019-10-21] MEDS: Cyanocobalamin (B-12) 1,000 MCG TABLET PO SCH (10:11)
[2019-10-21] MEDS: Furosemide 40 MG TABLET PO SCH (10:11)
[2019-10-21] MEDS: Aspirin 325 MG TABLET PO SCH (10:11)
[2019-10-22] MEDS: Aspirin 325 MG TABLET PO SCH (07:19)
[2019-10-22] MEDS: Furosemide 40 MG TABLET PO SCH (07:19)
[2019-10-22] MEDS: Cyanocobalamin (B-12) 1,000 MCG TABLET PO SCH (07:19)
[2019-10-22] MEDS ORDERED: Haloperidol Lactate 5 MG/ML VIAL ONE ×2 (07:49→17:07)
[2019-10-22] MEDS ORDERED: Haloperidol Lactate 5 MG/ML VIAL IM ONE (07:59)
[2019-10-22] MEDS ORDERED: Haloperidol Lactate 5 MG/ML VIAL IVP ONE (17:13)
[2019-10-22] MEDS ORDERED: Ziprasidone 10 MG in Water for inj. (sterile) 0.5 ML IM ONE ×2 (21:43→22:00)
[2019-10-23] MEDS: Aspirin 325 MG TABLET PO SCH (09:06)
[2019-10-23] MEDS: Cyanocobalamin (B-12) 1,000 MCG TABLET PO SCH (09:06)
[2019-10-23] MEDS: Furosemide 40 MG TABLET PO SCH (09:06)
[2019-10-23] MEDS ORDERED: Ziprasidone 10 MG in Water for inj. (sterile) 0.5 ML IM ONE (20:41)
[2019-10-24] MEDS: Cyanocobalamin (B-12) 1,000 MCG TABLET PO SCH (08:56)
[2019-10-24] MEDS: Aspirin 325 MG TABLET PO SCH (08:56)
[2019-10-24] MEDS: Furosemide 40 MG TABLET PO SCH (08:57)
[2019-10-24 23:58] VITALS: BP 126/72
[2019-10-25] MEDS ORDERED: Haloperidol Lactate 5 MG/ML VIAL IM STA (06:45)
[2019-10-25] MEDS ORDERED: Haloperidol Lactate 5 MG/ML VIAL ONE (06:49)
[2019-10-25] MEDS: Cyanocobalamin (B-12) 1,000 MCG TABLET PO SCH (09:45)
[2019-10-25] MEDS: Aspirin 325 MG TABLET PO SCH (09:45)
[2019-10-25] MEDS: Furosemide 40 MG TABLET PO SCH (09:45)
== END 2019-10-25 10:59 | DRG 884 ==
LOC: EMEROOARM 13:44 → 3BNU 13:44 → SUATTDRO 16:50 → 3BNU 17:53 → SUATTDRO 10-16 15:27
PROVIDERS: ADMIT Internal Medicine; ATTEND Internal Medicine

== ENCOUNTER 2019-11-02 16:33 | Inpatient (IN) ==
[2019-11-02 17:33] LABS: Basophils % 0.6 %; Eosinophils # 0.4 K/mcL (0.0-0.6); Eosinophils % 6.4 %; Hematocrit 33.3 % (37.5-50.1); Hemoglobin 11.1 g/dL (12.9-16.9); Immature Granulocytes % 0.5 % (0-4); Lymphocytes # 1.1 K/mcL (0.6-4.6); Lymphocytes % 17.3 %; Mean Corpuscular HGB Conc 33.3 g/dL (31.6-35.5); Mean Corpuscular Hemoglobin 31.3 pg (28.0-33.3); Mean Corpuscular Volume 93.8 fL (83.0-100.0); Mean Platelet Volume 10.2 fL (9.4-12.4); Monocytes # 0.7 K/mcL (0.0-1.3); Monocytes % 11.2 %; Platelet Count 234 K/mcL (140-400); Red Blood Count 3.55 M/mcL (4.19-5.50); Red Cell Distribution Width 13.3 % (11.5-14.5); White Blood Count 6.2 K/mcL (4.3-11.1)
[2019-11-02 18:09] LABS: Alanine Aminotransferase 10 Units/L (7-52); Albumin 3.5 g/dL (3.5-5.7); Albumin/Globulin Ratio 1.1 (1.1-2.2); Alkaline Phosphatase 72 Units/L (34-104); Aspartate Amino Transferase 15 Units/L (13-39); BUN/Creatinine Ratio 19 (6-26); Bilirubin,Direct 0.1 mg/dL (0.0-0.2); Bilirubin,Indirect 0.2 mg/dL (0.0-1.0); Bilirubin,Total 0.3 mg/dL (0.3-1.0); Blood Urea Nitrogen 22 mg/dL (8-23); Calcium 8.6 mg/dL (8.6-10.3); Carbon Dioxide 31 mEq/L (23-29); Chloride 99 mEq/L (98-107); Ethanol < 10 mg/dL (Less than 10); Globulin 3.2 g/dL (2.4-3.5); Glucose 93 mg/dL (70-105); Osmolality,Calculated 293 (280-300); Potassium 3.7 mEq/L (3.5-5.1); Sodium 140 mEq/L (136-145); Total Protein 6.7 g/dL (6.4-8.9); Troponin I < 0.03 ng/mL (< 0.04); eGFR For African Americans > 60 (> 60); eGFR For Non-African Americans 60 (> 60)
[2019-11-02 20:02] LABS: Bilirubin,Urine Negative (Negative); Blood,Urine Negative (Negative); Clarity,Urine Clear (Clear); Color,Urine Yellow (Yellow); Glucose,Urine (UA) Normal (Normal); Ketones,Urine Negative (Negative); Leukocyte Esterase,Urine Negative (Negative); Nitrite,Urine Negative (Negative); Protein,Urine Negative (Neg-Trace); Specific Gravity,Urine 1.012 (1.010-1.025); Urobilinogen,Urine Normal (Normal)
[2019-11-02] MEDS ORDERED: *HR* LORazepam 2 MG/ML VIAL IVP ONE (20:04)
[2019-11-02 20:10] LABS: Amphetamine Screen,Urine Negative ng/mL (Cutoff=1000); Barbiturate Screen,Urine Negative ng/mL (Cutoff=200); Benzodiazepines Screen,Urine Negative ng/mL (Cutoff=200); Cannabinoid Screen,Urine Negative ng/mL (Cutoff = 50); Cocaine Screen,Urine Negative ng/mL (Cutoff= 300); Opiate Screen,Urine Negative ng/mL (Cutoff=300); Phencyclidine Screen,Urine Negative ng/mL (Cutoff=25)
[2019-11-03] MEDS ORDERED: Naloxone 0.4 MG/ML INJ IVP PRN (00:13)
[2019-11-03] MEDS ORDERED: Lidocaine 4% CREAM (LMX) 5 GM TP PRN (00:14)
[2019-11-03] MEDS ORDERED: 0.9 % Sodium Chloride 1,000 ML IVC SCH (00:15)
[2019-11-03] MEDS: *HR* Heparin 5,000 UNIT/ML VIAL SQ SCH ×3 (05:22→21:49)
[2019-11-03] MEDS: (Pravastatin Sodium [Pravachol] 40 MG) PO SCH (09:50)
[2019-11-03] MEDS: Aspirin 325 MG TABLET PO SCH (09:50)
[2019-11-03] MEDS: Furosemide 40 MG TABLET PO SCH (09:50)
[2019-11-03] MEDS: Cyanocobalamin (B-12) 1,000 MCG TABLET PO SCH (09:50)
[2019-11-03 12:52] LABS: Hematocrit 32.3 % (37.5-50.1); Hemoglobin 10.5 g/dL (12.9-16.9); Mean Corpuscular HGB Conc 32.5 g/dL (31.6-35.5); Mean Corpuscular Hemoglobin 31.4 pg (28.0-33.3); Mean Corpuscular Volume 96.7 fL (83.0-100.0); Mean Platelet Volume 10.3 fL (9.4-12.4); Platelet Count 199 K/mcL (140-400); Red Blood Count 3.34 M/mcL (4.19-5.50); Red Cell Distribution Width 13.3 % (11.5-14.5); White Blood Count 5.6 K/mcL (4.3-11.1)
[2019-11-03 13:10] LABS: BUN/Creatinine Ratio 17 (6-26); Blood Urea Nitrogen 18 mg/dL (8-23); Calcium 8.2 mg/dL (8.6-10.3); Carbon Dioxide 32 mEq/L (23-29); Chloride 102 mEq/L (98-107); Cholesterol 140 mg/dL (< 200); Glucose 95 mg/dL (70-105); HDL Cholesterol 47 mg/dL (40-59); LDL Cholesterol,Calculated 79 mg/dL (0-99); Osmolality,Calculated 290 (280-300); Potassium 4.2 mEq/L (3.5-5.1); Sodium 139 mEq/L (136-145); Triglycerides 69 mg/dL (< 150); eGFR For African Americans > 60 (> 60); eGFR For Non-African Americans > 60 (> 60)
[2019-11-04 03:40] LABS: Hematocrit 33.3 % (37.5-50.1); Hemoglobin 10.8 g/dL (12.9-16.9); Mean Corpuscular HGB Conc 32.4 g/dL (31.6-35.5); Mean Corpuscular Hemoglobin 30.9 pg (28.0-33.3); Mean Corpuscular Volume 95.4 fL (83.0-100.0); Mean Platelet Volume 10.2 fL (9.4-12.4); Platelet Count 194 K/mcL (140-400); Red Blood Count 3.49 M/mcL (4.19-5.50); Red Cell Distribution Width 13.3 % (11.5-14.5)
[2019-11-04 03:52] LABS: BUN/Creatinine Ratio 18 (6-26); Blood Urea Nitrogen 22 mg/dL (8-23); Calcium 8.3 mg/dL (8.6-10.3); Carbon Dioxide 29 mEq/L (23-29); Chloride 102 mEq/L (98-107); Glucose 95 mg/dL (70-105); Osmolality,Calculated 291 (280-300); Potassium 3.8 mEq/L (3.5-5.1); Sodium 139 mEq/L (136-145); eGFR For African Americans > 60 (> 60); eGFR For Non-African Americans 58 (> 60)
[2019-11-04] MEDS: *HR* Heparin 5,000 UNIT/ML VIAL SQ SCH ×3 (05:45→21:34)
[2019-11-04] MEDS: Cyanocobalamin (B-12) 1,000 MCG TABLET PO SCH (10:55)
[2019-11-04] MEDS: Aspirin 325 MG TABLET PO SCH (10:55)
[2019-11-04] MEDS: (Pravastatin Sodium [Pravachol] 40 MG) PO SCH (10:55)
[2019-11-04] MEDS: Furosemide 40 MG TABLET PO SCH (10:55)
[2019-11-05] MEDS ORDERED: Haloperidol Lactate 5 MG/ML VIAL IVP ONE (04:13)
[2019-11-05] MEDS ORDERED: *HR* Promethazine 25 MG/ML VIAL IVP ONE (04:13)
[2019-11-05] MEDS: *HR* Heparin 5,000 UNIT/ML VIAL SQ SCH ×3 (05:21→21:34)
[2019-11-05] MEDS: Aspirin 325 MG TABLET PO SCH (08:38)
[2019-11-05 08:39] LABS: Hematocrit 32.4 % (37.5-50.1); Hemoglobin 10.6 g/dL (12.9-16.9); Mean Corpuscular HGB Conc 32.7 g/dL (31.6-35.5); Mean Corpuscular Hemoglobin 31.5 pg (28.0-33.3); Mean Corpuscular Volume 96.4 fL (83.0-100.0); Mean Platelet Volume 10.4 fL (9.4-12.4); Platelet Count 179 K/mcL (140-400); Red Blood Count 3.36 M/mcL (4.19-5.50); Red Cell Distribution Width 13.1 % (11.5-14.5); White Blood Count 7.4 K/mcL (4.3-11.1)
[2019-11-05] MEDS: Furosemide 40 MG TABLET PO SCH (08:39)
[2019-11-05] MEDS: (Pravastatin Sodium [Pravachol] 40 MG) PO SCH (08:39)
[2019-11-05] MEDS: Cyanocobalamin (B-12) 1,000 MCG TABLET PO SCH (08:39)
[2019-11-05 09:02] LABS: Blood Urea Nitrogen 20 mg/dL (8-23); Calcium 8.5 mg/dL (8.6-10.3); Carbon Dioxide 28 mEq/L (23-29); Chloride 104 mEq/L (98-107); Glucose 96 mg/dL (70-105); Osmolality,Calculated 292 (280-300); Potassium 4.1 mEq/L (3.5-5.1); Sodium 140 mEq/L (136-145)
[2019-11-05 09:33] LABS: BUN/Creatinine Ratio 19 (6-26); eGFR For African Americans > 60 (> 60); eGFR For Non-African Americans > 60 (> 60)
[2019-11-06] MEDS: *HR* Heparin 5,000 UNIT/ML VIAL SQ SCH (05:06)
[2019-11-06 08:12] LABS: Hematocrit 30.1 % (37.5-50.1); Hemoglobin 9.8 g/dL (12.9-16.9); Mean Corpuscular HGB Conc 32.6 g/dL (31.6-35.5); Mean Corpuscular Hemoglobin 31.4 pg (28.0-33.3); Mean Corpuscular Volume 96.5 fL (83.0-100.0); Mean Platelet Volume 10.1 fL (9.4-12.4); Platelet Count 155 K/mcL (140-400); Red Blood Count 3.12 M/mcL (4.19-5.50); Red Cell Distribution Width 13.3 % (11.5-14.5)
[2019-11-06 08:25] LABS: BUN/Creatinine Ratio 20 (6-26); Blood Urea Nitrogen 21 mg/dL (8-23); Calcium 8.4 mg/dL (8.6-10.3); Carbon Dioxide 32 mEq/L (23-29); Chloride 102 mEq/L (98-107); Glucose 92 mg/dL (70-105); Osmolality,Calculated 293 (280-300); Potassium 3.7 mEq/L (3.5-5.1); Sodium 140 mEq/L (136-145); eGFR For African Americans > 60 (> 60); eGFR For Non-African Americans > 60 (> 60)
[2019-11-06] MEDS: Aspirin 325 MG TABLET PO SCH (11:37)
[2019-11-06] MEDS: Cyanocobalamin (B-12) 1,000 MCG TABLET PO SCH (11:37)
[2019-11-06] MEDS: (Pravastatin Sodium [Pravachol] 40 MG) PO SCH (11:37)
[2019-11-06] MEDS: Furosemide 40 MG TABLET PO SCH (11:37)
[2019-11-06 12:04] VITALS: BP 132/63
== END 2019-11-06 14:43 | disposition home health service (06) | DRG 948 ==
LOC: EMEROOARM 16:33 → 3BNU 16:33
PROVIDERS: ADMIT Internal Medicine; ATTEND Internal Medicine